=== PATIENT | male | born 1945 | race African-American/Black ===

== ENCOUNTER 2017-10-22 15:54 | Inpatient (IN) | payer MEDICARE ==
[~2017-10-22] VITALS: Ht 172.7 cm; Wt 80.4 kg
[2017-10-22 17:14] VITALS: BP 169/98
[2017-10-22] MEDS ORDERED: MAG HYDROX/AL HYDROX/SIMETH 30 ML ORAL.SUSP PO PRN (18:00)
[2017-10-22] MEDS ORDERED: MAGNESIUM HYDROXIDE 2,400 MG/30 ML ORAL.SUSP. PO PRN (18:00)
[2017-10-22] MEDS ORDERED: ACETAMINOPHEN 325 MG TABLET PO PRN (18:00)
[2017-10-22] MEDS ORDERED: METHYL SALICYLATE/MENTHOL TOPICAL OINTMENT 29GM TUBE. TP PRN (18:00)
--- NOTE | 2017-10-22 18:10 | PDOC ---
Exam Note: [place] Note: Please also refer to the separate dictated note~for this date of service dictated separately.~Patient seen individually. Discussed the patient with Nursing staff reviewed the chart.~Reviewed interim history and current functioning. Reviewed vital signs,~Labs/ Radiology~and current medications noted below. Continue current treatment with the changes noted in the dictated addendum note Assessment: Vital Signs: Vital Signs Date Time Temp Pulse Resp B/P (MAP) Pulse Ox O2 Delivery O2 Flow Rate FiO2 10/22/17 17:14 97.8 72 18 169/98 (121) 99 Current Medications: Meds: Current Medications Acetaminophen (Tylenol) 650 mg PRN Q6HRS PRN PO PAIN / TEMP; Start 10/22/17 at 18:00; Status UNV Multi-Ingredient Ointment (Analgesic [place]) 1 leticia PRN QID PRN TP MUSCLE PAIN; Start 10/22/17 at 18:00; Status UNV Al Hydroxide/Mg Hydroxide (Mylanta Plus Xs) 15 ml PRN AFTMEALHC PRN PO DYSPEPSIA; Start 10/22/17 at 18:00; Status UNV Magnesium Hydroxide (Milk Of Magnesia) 2,400 mg PRN QHS PRN PO CONSTIPATION; Start 10/22/17 at 18:00; Status UNV I have reviewed the current psychotropics carefully including drug interactions. Risk benefit ratio favors no change other than as noted in my dictated progress note. Diagnosis: Problems: (1) Anxiety disorder (2) Dementia in Alzheimer's disease with delusions (3) Dementia in Alzheimer's disease with depression (4) Dementia, vascular, with delusions (5) Dementia, vascular, with depression (6) Impulse control disorder ARMANDO CRAIG MD Oct 22, 2017 18:10
[2017-10-22] MEDS ORDERED: NICO1PAT21 TD (18:18)
[2017-10-22] MEDS ORDERED: LISI-334 PO (18:18)
[2017-10-22] MEDS ORDERED: POLY15DR28 OU (18:18)
[2017-10-22] MEDS ORDERED: AMLO5TAB4 PO (18:18)
[2017-10-22] MEDS ORDERED: DONE5TAB56 PO (18:18)
[2017-10-22] MEDS ORDERED: OLAN2.5T3 PO (18:18)
[2017-10-22] MEDS ORDERED: CYAN100031 PO (18:18)
[2017-10-22] MEDS ORDERED: DOCU-109 PO (18:18)
[2017-10-22] MEDS ORDERED: DOCUSATE SODIUM 100 MG CAPSULE PO PRN (18:30)
[2017-10-22] MEDS ORDERED: OLANZapine 2.5 MG TABLET PO PRN (18:30)
[2017-10-22] MEDS ORDERED: POLYVINYL ALCOHOL 1.4% OPHTH SOLUTION 15ML BOTTLE. OD PRN (18:30)
--- NOTE | 2017-10-22 20:49 | PDOC ---
Exam Note: [place] Note: Please also refer to the separate dictated note~for this date of service dictated separately.~Patient seen individually. Discussed the patient with Nursing staff reviewed the chart.~Reviewed interim history and current functioning. Reviewed vital signs,~Labs/ Radiology~and current medications noted below. Continue current treatment with the changes noted in the dictated addendum note Assessment: Vital Signs: Vital Signs Date Time Temp Pulse Resp B/P (MAP) Pulse Ox O2 Delivery O2 Flow Rate FiO2 10/22/17 17:14 97.8 72 18 169/98 (121) 99 Current Medications: Meds: Current Medications Acetaminophen (Tylenol) 650 mg PRN Q6HRS PRN PO PAIN / TEMP; Start 10/22/17 at 18:00 Multi-Ingredient Ointment (Analgesic [place]) 1 leticia PRN QID PRN TP MUSCLE PAIN; Start 10/22/17 at 18:00 Al Hydroxide/Mg Hydroxide (Mylanta Plus Xs) 15 ml PRN AFTMEALHC PRN PO DYSPEPSIA; Start 10/22/17 at 18:00 Magnesium Hydroxide (Milk Of Magnesia) 2,400 mg PRN QHS PRN PO CONSTIPATION; Start 10/22/17 at 18:00 Amlodipine Besylate (Norvasc) 5 mg DAILY PO ; Start 10/23/17 at 09:00 Docusate Sodium (Colace) 100 mg PRN BID PRN PO CONSTIPATION; Start 10/22/17 at 18:30 Donepezil HCl (Aricept) 5 mg QHS PO Last administered on 10/22/17at 20:20; Start 10/22/17 at 21:00 Lisinopril (Prinivil) 20 mg DAILY PO ; Start 10/23/17 at 09:00 Nicotine (Nicoderm Cq 21mg) 1 patch DAILY TD ; Start 10/23/17 at 09:00 Olanzapine (ZyPREXA) 2.5 mg PRN Q2HR PRN PO ANXIETY / AGITATION; Start at 18:30 Artificial Tears (Artificial Tears) 1 drop PRN BID PRN OD DRY EYE; Start at 18:30 Cyanocobalamin (Vitamin B-12) 1,000 mcg DAILY PO ; Start 10/23/17 at 09:00 Active Scripts Active Reported Zyprexa (Olanzapine) 2.5 Mg Tablet 2.5 Mg PO PRN Q2HR PRN Liquitears (Polyvinyl Alcohol) 15 Ml Drops 1 Drop OD Colace (Docusate Sodium) 100 Mg Capsule 100 Mg PO PRN BID PRN NICODERM CQ 21mg (Nicotine) 1 Each Patch.td24 1 Patch TD DAILY Lisinopril 20 Mg Tablet 20 Mg PO DAILY Aricept (Donepezil Hcl) 5 Mg Tablet 5 Mg PO QHS B-12 (Cyanocobalamin (Vitamin B-12)) 1,000 Mcg Tablet.er 1,000 Mcg PO DAILY Norvasc (Amlodipine Besylate) 5 Mg Tablet 5 Mg PO DAILY I have reviewed the current psychotropics carefully including drug interactions. Risk benefit ratio favors no change other than as noted in my dictated progress note. Diagnosis: Problems: (1) Anxiety disorder (2) Impulse control disorder (3) Dementia, vascular, with depression (4) Dementia, vascular, with delusions (5) Dementia in Alzheimer's disease with depression (6) Dementia in Alzheimer's disease with delusions ARMANDO CRAIG MD Oct 22, 2017 20:49
[2017-10-22] MEDS ORDERED: DONEPEZIL HCL 5 MG TABLET. PO SCH (21:00)
[2017-10-23 06:04] VITALS: BP 151/85
[2017-10-23 07:27] LABS: BASO % 1 % (0-3); EOS # 0.1 x10^3/uL (0.0-0.7); EOS % 2 % (0-3); HEMOGLOBIN 13.7 g/dL (13.0-17.5); LYMPH # 1.6 x10^3/uL (1.0-4.8); LYMPH % 33 % (24-48); MEAN CORPUSCULAR HEMOGLOBIN 29 pg (25-35); MEAN CORPUSCULAR HGB CONC 33 g/dL (31-37); MEAN CORPUSCULAR VOLUME 86 fL (79-100); MONO # 0.5 x10^3/uL (0.0-1.1); MONO % 10 % (0-9); NEUT # 2.8 x10^3uL (1.8-7.7); NEUT % 55 % (31-73); PLATELET COUNT 225 x10^3/uL (140-400); RED BLOOD COUNT 4.76 x10^6/uL (4.30-5.70); RED CELL DISTRIBUTION WIDTH 16.3 % (11.5-14.5)
[2017-10-23 07:42] LABS: ALBUMIN/GLOBULIN RATIO 0.9 (1.0-1.7); CALCIUM 8.8 mg/dL (8.5-10.1); CREATININE 0.9 mg/dL (0.7-1.3); GFR 82.5; MAGNESIUM 1.8 mg/dL (1.8-2.4); POTASSIUM 3.9 mmol/L (3.5-5.1); TOTAL BILIRUBIN 0.5 mg/dL (0.2-1.0); TOTAL PROTEIN 6.5 g/dL (6.4-8.2)
[2017-10-23] MEDS: NICOTINE 21MG PATCH. TD SCH ×2 (08:56→09:00)
[2017-10-23] MEDS: CYANOCOBALAMIN (VITAMIN B-12) 1,000 MCG TABLET. PO SCH (08:56)
[2017-10-23] MEDS: LISINOPRIL 20 MG TABLET PO SCH (08:57)
[2017-10-23] MEDS: amLODIPine BESYLATE 5 MG TABLET PO SCH (08:57)
--- NOTE | 2017-10-23 11:32 | HP ---
ADMIT DATE: 10/22/2017 PSYCHIATRIC ADMISSION HISTORY/EVALUATION This late entry 10/22/2017 covers elements not covered in my initial note 10/22/2017. I met with the patient in the evening of 10/22/2017 for this evaluation previously discussed with nursing staff, reviewed information from [facility] where he has been hospitalized after he was found at home extremely , unsanitary, unlivable conditions, extremely depressed, potential danger to himself. While at [facility], he was increasingly agitated, screaming, yelling, pushing staff, disorganized, cursing, hitting the pierce, inability to do self cares. CHIEF COMPLAINT: "I have been here 3 weeks." The patient was in fact admitted within a hour or two prior to my visit with him. HISTORY OF PRESENT ILLNESS: The patient has a history of dementia, Alzheimer's vascular type. Despite this, he has been living at home and apparently another lady friend lives at home. Urine drug screen at [facility] was positive for cocaine, but family states the patient has no history of substance abuse and his lady friend might have something to do with his positive drug screen. He has been quite delusional, depressed, hopeless, helpless, worthless. No active suicidal or homicidal ideation. No active symptoms of bipolar disorder. PAST PSYCHIATRIC HISTORY: As above. MEDICAL HISTORY: Hypertension. DRUG ALLERGIES: Negative. CURRENT PSYCHOTROPICS: EMRAD was reviewed and my initial note has a list of his psychotropics. FAMILY HISTORY: Noncontributory. SOCIAL HISTORY: The patient had been living in his home in extremely unsanitary, unlivable condition. We will defer to social service staff for further history on this. No alcohol, drug abuse, physical, sexual or elder abuse history is noted, but we will have to reassess not known to be a perpetrator. MENTAL STATUS EXAMINATION: The patient was seen individually evening of 10/22/2017. He is in his wheelchair, oriented to himself, unaware of where he was, how long he had been here. Insight, judgment, recent and remote memory, attention, concentration, fund of knowledge poor, consistent with his diagnosis mentioned in my initial note. REVIEW OF SYSTEMS: No CV, , pulmonary, eye, ENT system symptoms on review. Reliability poor. Ambulation impaired. IMPRESSION: Major neurocognitive disorder, Alzheimer, vascular with depression, delusion, behavioral disturbance; anxiety disorder, unspecified; impulse control disorder, unspecified. Rest unchanged from admission. PLAN: Admit to geropsychiatry unit at [facility]. I will see the patient daily individually from a psychiatric standpoint, medical followup per Dr. Avalos/Dr. Yi. Continue current psychotropics, observe baseline, then adjust as clinically indicated and social service staff will pursue appropriate placement options. MAN Clayton CRAIG MD DR: FARIBA/lucia JOB#: [id number] / [id number]
--- NOTE | 2017-10-23 11:57 | EKG ---
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
[2017-10-23 13:17] LABS: CLARITY,URINE CLEAR; COLOR,URINE YELLOW
[2017-10-23 13:18] LABS: BACTERIA,URINE 0 /HPF (0-FEW); BILIRUBIN,URINE NEG (NEG); GLUCOSE,URINE NEG (NEG); NITRITE,URINE NEG (NEG); RBC,URINE 0 /HPF (0-2); SQUAMOUS EPITHELIAL CELL,UR OCC /LPF; UROBILINOGEN,URINE 1 mg/dL (0.2 mg/dL); WBC,URINE RARE /HPF (0-4)
[2017-10-23 14:03] LABS: THYROID STIM HORMONE (TSH) 0.721 uIU/mL (0.358-3.740)
[2017-10-23 16:14] VITALS: BP 129/93
[2017-10-23] MEDS: DONEPEZIL HCL 10 MG TABLET PO SCH (19:54)
--- NOTE | 2017-10-23 20:54 | PDOC ---
Exam Note: [place] Note: Please also refer to the separate dictated note~for this date of service dictated separately.~Patient seen individually. Discussed the patient with Nursing staff reviewed the chart.~Reviewed interim history and current functioning. Reviewed vital signs,~Labs/ Radiology~and current medications noted below. Continue current treatment with the changes noted in the dictated addendum note Assessment: Vital Signs: Vital Signs Date Time Temp Pulse Resp B/P (MAP) Pulse Ox O2 Delivery O2 Flow Rate FiO2 10/23/17 16:14 97.9 67 19 129/93 (105) 98 I&O Intake and Output 10/23/17 07:00 Intake Total 480 ml Balance 480 ml Intake Oral 480 ml # Voids 2 Labs: Laboratory Tests Test 10/23/17 06:53 10/23/17 11:55 White Blood Count 5.0 x10^3/uL (4.0-11.0) Red Blood Count 4.76 x10^6/uL (4.30-5.70) Hemoglobin 13.7 g/dL (13.0-17.5) Hematocrit 41.0 % (39.0-53.0) Mean Corpuscular Volume 86 fL (79-100) Mean Corpuscular Hemoglobin 29 pg (25-35) Mean Corpuscular Hemoglobin Concent 33 g/dL (31-37) Red Cell Distribution Width 16.3 % (11.5-14.5) H Platelet Count 225 x10^3/uL (140-400) Neutrophils (%) (Auto) 55 % (31-73) Lymphocytes (%) (Auto) 33 % (24-48) Monocytes (%) (Auto) 10 % (0-9) H Eosinophils (%) (Auto) 2 % (0-3) Basophils (%) (Auto) 1 % (0-3) Neutrophils # (Auto) 2.8 x10^3uL (1.8-7.7) Lymphocytes # (Auto) 1.6 x10^3/uL (1.0-4.8) Monocytes # (Auto) 0.5 x10^3/uL (0.0-1.1) Eosinophils # (Auto) 0.1 x10^3/uL (0.0-0.7) Basophils # (Auto) 0.0 x10^3/uL (0.0-0.2) Sodium Level 141 mmol/L (136-145) Potassium Level 3.9 mmol/L (3.5-5.1) Chloride Level 105 mmol/L (98-107) Carbon Dioxide Level 28 mmol/L (21-32) Anion Gap 8 (6-14) Blood Urea Nitrogen 10 mg/dL (8-26) Creatinine 0.9 mg/dL (0.7-1.3) Estimated GFR (Cockcroft-Gault) 82.5 BUN/Creatinine Ratio 11 (6-20) Glucose Level 84 mg/dL (70-99) Calcium Level 8.8 mg/dL (8.5-10.1) Magnesium Level 1.8 mg/dL (1.8-2.4) Iron Level 74 ug/dL (65-175) Total Iron Binding Capacity 253 ug/dL (250-450) Iron Saturation 29 % (15-34) Total Bilirubin 0.5 mg/dL (0.2-1.0) Aspartate Amino Transferase (AST) 28 U/L (15-37) Alanine Aminotransferase (ALT) 26 U/L (16-63) Alkaline Phosphatase 70 U/L (46-116) Total Protein 6.5 g/dL (6.4-8.2) Albumin 3.0 g/dL (3.4-5.0) L Albumin/Globulin Ratio 0.9 (1.0-1.7) L Triglycerides Level 61 mg/dL (0-150) Cholesterol Level 140 mg/dL (0-200) LDL Cholesterol, Calculated 60 mg/dL (0-100) VLDL Cholesterol, Calculated 12 mg/dL (0-40) Non-HDL Cholesterol Calculated 72 mg/dL (0-129) HDL Cholesterol 68 mg/dL (40-60) H Cholesterol/HDL Ratio 2.0 Vitamin B12 Level 452 pg/mL (247-911) 25-Hydroxy Vitamin D Total < 4.2 ng/mL (30-100) L Thyroid Stimulating Hormone (TSH) 0.721 uIU/mL (0.358-3.740) Urine Collection Type Unknown Urine Color Yellow Urine Clarity Clear Urine pH 6.5 Urine Specific [place] 1.015 Urine Protein Neg (NEG-TRACE) Urine Glucose (UA) Neg mg/dL (NEG) Urine Ketones (Stick) Neg mg/dL (NEG) Urine Blood Neg (NEG) Urine Nitrite Neg (NEG) Urine Bilirubin Neg (NEG) Urine Urobilinogen Dipstick 1 mg/dL (0.2 mg/dL) Urine Leukocyte Esterase Neg (NEG) Urine RBC 0 /HPF (0-2) Urine WBC Rare /HPF (0-4) Urine Squamous Epithelial Cells Occ /LPF Urine Bacteria 0 /HPF (0-FEW) Urine Mucus Mod /LPF Current Medications: Meds: Current Medications Acetaminophen (Tylenol) 650 mg PRN Q6HRS PRN PO PAIN / TEMP; Start 10/22/17 at 18:00 Multi-Ingredient Ointment (Analgesic [place]) 1 leticia PRN QID PRN TP MUSCLE PAIN; Start 10/22/17 at 18:00 Al Hydroxide/Mg Hydroxide (Mylanta Plus Xs) 15 ml PRN AFTMEALHC PRN PO DYSPEPSIA; Start 10/22/17 at 18:00 Magnesium Hydroxide (Milk Of Magnesia) 2,400 mg PRN QHS PRN PO CONSTIPATION; Start 10/22/17 at 18:00 Amlodipine Besylate (Norvasc) 5 mg DAILY PO Last administered on 10/23/17at 08: 57; Start 10/23/17 at 09:00 Docusate Sodium (Colace) 100 mg PRN BID PRN PO CONSTIPATION; Start 10/22/17 at 18:30 Donepezil HCl (Aricept) 5 mg QHS PO Last administered on 10/22/17at 20:20; Start 10/22/17 at 21:00; Stop 10/23/17 at 18:04; Status DC Lisinopril (Prinivil) 20 mg DAILY PO Last administered on 10/23/17at 08:57; Start 10/23/17 at 09:00 Nicotine (Nicoderm Cq 21mg) 1 patch DAILY TD ; Start 10/23/17 at 09:00 Olanzapine (ZyPREXA) 2.5 mg PRN Q2HR PRN PO ANXIETY / AGITATION; Start at 18:30 Artificial Tears (Artificial Tears) 1 drop PRN BID PRN OD DRY EYE; Start at 18:30 Cyanocobalamin (Vitamin B-12) 1,000 mcg DAILY PO Last administered on at 08:56; Start 10/23/17 at 09:00 Donepezil HCl (Aricept) 10 mg QHS PO Last administered on 10/23/17at 19:54; Start 10/23/17 at 21:00 Sertraline HCl (Zoloft) 25 mg DAILY PO ; Start 10/24/17 at 09:00 Active Scripts Active Reported Zyprexa (Olanzapine) 2.5 Mg Tablet 2.5 Mg PO PRN Q2HR PRN Liquitears (Polyvinyl Alcohol) 15 Ml Drops 1 Drop OD Colace (Docusate Sodium) 100 Mg Capsule 100 Mg PO PRN BID PRN NICODERM CQ 21mg (Nicotine) 1 Each Patch.td24 1 Patch TD DAILY Lisinopril 20 Mg Tablet 20 Mg PO DAILY Aricept (Donepezil Hcl) 5 Mg Tablet 5 Mg PO QHS B-12 (Cyanocobalamin (Vitamin B-12)) 1,000 Mcg Tablet.er 1,000 Mcg PO DAILY Norvasc (Amlodipine Besylate) 5 Mg Tablet 5 Mg PO DAILY I have reviewed the current psychotropics carefully including drug interactions. Risk benefit ratio favors no change other than as noted in my dictated progress note. Diagnosis: Problems: (1) Anxiety disorder (2) Impulse control disorder (3) Dementia, vascular, with depression (4) Dementia, vascular, with delusions (5) Dementia in Alzheimer's disease with depression (6) Dementia in Alzheimer's disease with delusions ARMANDO CRAIG MD Oct 23, 2017 20:54
[2017-10-24 00:11] LABS: T3 TOTAL 130 ng/dL (71-180); THYROXINE 6.4 ug/dL (4.5-12.0)
--- NOTE | 2017-10-24 00:53 | CONS ---
DATE OF CONSULTATION: 10/23/2017 REASON FOR CONSULTATION: Medical management. HISTORY OF PRESENT ILLNESS: The patient is a 72-year-old male patient who was found at home extremely unsanitary unlivable condition, extremely depressed, potential danger to himself. Apparently while at [facility], he was increasingly agitated, screaming, yelling, pushing staff, disorganized, cursing, hitting, and apparently, he is unable to care for himself and was basically admitted to Geropsychiatric Unit to continue his psychotropics and take care of his medical problems and to consult the social service staff to pursue appropriate placement options. The patient himself basically extremely demented with Alzheimer, vascular type. He apparently has been living at home and another lady friend lives at home. A urine drug screen at [facility] was positive for cocaine, and family states the patient has no history of substance abuse, and his lady friend might have something to do with this positive drug screen. He has been quite delusional, depressed, hopeless, helpless, worthless, however, no active suicidal or homicidal ideation and no active symptoms of bipolar disorder. PAST MEDICAL HISTORY: Significant for hypertension. PAST SURGICAL HISTORY: Unremarkable. ALLERGIES: He has no known drug allergies. MEDICATIONS: He is currently on following medications: Aricept 5 mg at bedtime. He is on a Nicoderm transdermal patch 21 mg topically daily, amlodipine besylate 5 mg daily, lisinopril 20 mg once a day, olanzapine 2.5 mg every 2 hours, polyvinyl alcohol for LiquiTears 1 drop to both eyes, Colace 100 mg twice a day and cyanocobalamin 1000 mcg p.o. daily. REVIEW OF SYSTEMS: Unobtainable. FAMILY HISTORY: Noncontributory. PHYSICAL EXAMINATION: GENERAL: When I saw him this afternoon, he looked well and was clearly in no apparent respiratory distress, pale, but no jaundice, cyanosis, or thyromegaly. No jugular venous distention. No limb edema. VITAL SIGNS: Hid heart rate was 73, blood pressure 151/85, temperature was 96.9, respiratory rate was 16, and oxygen saturation was 98% on room air. HEAD, EYES, EARS, NOSE AND THROAT: Showed normocephalic, atraumatic. NECK: Supple. HEART: Showed normal first and second sounds. No gallop, rub or murmur. CHEST: Clear to auscultation. No crepitation or rhonchi. ABDOMEN: Slightly distended, soft, nontender. No guarding or rigidity. No organomegaly. All hernial orifices intact. Bowel sounds normal. NEUROLOGIC: He was demented; however, all his cranial nerves are intact. EXTREMITIES: He moves extremities without difficulty. He ambulates without assistance or assistive devices. LABORATORY DATA: His lab work this morning showed a white cell count 5000, hemoglobin 14, hematocrit 41, MCV 86 and platelet count 225,000. His serum sodium was 141, potassium 3.9, chloride 105, bicarbonate 28, anion gap of 8, BUN 10, creatinine 0.9, estimated GFR was 82 mL per minute. His glucose was 84, calcium was 8.8, magnesium was 1.8. Total bilirubin, AST, ALT, alkaline phosphatase were normal. Total protein was 6.5, albumin 3. His urinalysis showed the urine was yellow, clear with a pH of 6.5, specific gravity of 1.015. The urine was negative for protein, glucose, ketones, blood, nitrite and leukocyte esterase. There are 0 rbc's, rare wbc's, and 0 bacteria. ASSESSMENT AND PLAN: In summary, this is a 72-year-old male patient who basically was found at home in an extremely unsanitary unlivable condition, is extremely depressed, potential danger to himself. He was quite delusional, depressed, hopeless, helpless, worthless, and apparently, urine drug screen at [facility] was positive for cocaine. 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 [facility]. The patient's vital signs seem to be all stable as were his lab work. His blood pressure seems to be reasonably controlled. I would definitely continue with all his current medication, review all the labs, still pending at the time of this dictation, and make any necessary recommendation. ISAIAH NICOLE MD DR: ENRICO/lucia JOB#: [id number] / [id number]
[2017-10-24] MEDS: amLODIPine BESYLATE 5 MG TABLET PO SCH (08:20)
[2017-10-24] MEDS: CYANOCOBALAMIN (VITAMIN B-12) 1,000 MCG TABLET. PO SCH (08:20)
[2017-10-24] MEDS: NICOTINE 21MG PATCH. TD SCH (08:20)
[2017-10-24] MEDS: LISINOPRIL 20 MG TABLET PO SCH (08:20)
[2017-10-24] MEDS ORDERED: SERTRALINE 25 MG TABLET. PO SCH (09:00)
[2017-10-24 15:46] VITALS: BP 100/60
[2017-10-24] MEDS: DONEPEZIL HCL 10 MG TABLET PO SCH (20:11)
--- NOTE | 2017-10-24 22:46 | PDOC ---
Exam Note: [place] Note: Please also refer to the separate dictated note~for this date of service dictated separately.~Patient seen individually. Discussed the patient with Nursing staff reviewed the chart.~Reviewed interim history and current functioning. Reviewed vital signs,~Labs/ Radiology~and current medications noted below. Continue current treatment with the changes noted in the dictated addendum note Assessment: Vital Signs: Vital Signs Date Time Temp Pulse Resp B/P (MAP) Pulse Ox O2 Delivery O2 Flow Rate FiO2 10/24/17 15:46 98.4 64 16 100/60 (73) 98 I&O Intake and Output 10/24/17 07:00 Intake Total 1320 ml Balance 1320 ml Intake Oral 1320 ml # Voids 3 Current Medications: Meds: Current Medications Acetaminophen (Tylenol) 650 mg PRN Q6HRS PRN PO PAIN / TEMP; Start 10/22/17 at 18:00 Multi-Ingredient Ointment (Analgesic [place]) 1 leticia PRN QID PRN TP MUSCLE PAIN; Start 10/22/17 at 18:00 Al Hydroxide/Mg Hydroxide (Mylanta Plus Xs) 15 ml PRN AFTMEALHC PRN PO DYSPEPSIA; Start 10/22/17 at 18:00 Magnesium Hydroxide (Milk Of Magnesia) 2,400 mg PRN QHS PRN PO CONSTIPATION; Start 10/22/17 at 18:00 Amlodipine Besylate (Norvasc) 5 mg DAILY PO Last administered on 10/24/17at 08: 20; Start 10/23/17 at 09:00 Docusate Sodium (Colace) 100 mg PRN BID PRN PO CONSTIPATION; Start 10/22/17 at 18:30 Donepezil HCl (Aricept) 5 mg QHS PO Last administered on 10/22/17at 20:20; Start 10/22/17 at 21:00; Stop 10/23/17 at 18:04; Status DC Lisinopril (Prinivil) 20 mg DAILY PO Last administered on 10/24/17at 08:20; Start 10/23/17 at 09:00 Nicotine (Nicoderm Cq 21mg) 1 patch DAILY TD Last administered on 10/24/17at 08: 20; Start 10/23/17 at 09:00 Olanzapine (ZyPREXA) 2.5 mg PRN Q2HR PRN PO ANXIETY / AGITATION Last administered on 10/23/17at 22:55; Start 10/22/17 at 18:30 Artificial Tears (Artificial Tears) 1 drop PRN BID PRN OD DRY EYE; Start at 18:30 Cyanocobalamin (Vitamin B-12) 1,000 mcg DAILY PO Last administered on at 08:20; Start 10/23/17 at 09:00 Donepezil HCl (Aricept) 10 mg QHS PO Last administered on 10/24/17at 20:11; Start 10/23/17 at 21:00 Sertraline HCl (Zoloft) 25 mg DAILY PO Last administered on 10/24/17at 08:22; Start 10/24/17 at 09:00; Stop 10/24/17 at 18:28; Status DC Sertraline HCl (Zoloft) 50 mg DAILY PO ; Start 10/25/17 at 09:00 Active Scripts Active Reported Zyprexa (Olanzapine) 2.5 Mg Tablet 2.5 Mg PO PRN Q2HR PRN Liquitears (Polyvinyl Alcohol) 15 Ml Drops 1 Drop OD Colace (Docusate Sodium) 100 Mg Capsule 100 Mg PO PRN BID PRN NICODERM CQ 21mg (Nicotine) 1 Each Patch.td24 1 Patch TD DAILY Lisinopril 20 Mg Tablet 20 Mg PO DAILY Aricept (Donepezil Hcl) 5 Mg Tablet 5 Mg PO QHS B-12 (Cyanocobalamin (Vitamin B-12)) 1,000 Mcg Tablet.er 1,000 Mcg PO DAILY Norvasc (Amlodipine Besylate) 5 Mg Tablet 5 Mg PO DAILY I have reviewed the current psychotropics carefully including drug interactions. Risk benefit ratio favors no change other than as noted in my dictated progress note. Diagnosis: Problems: (1) Anxiety disorder (2) Impulse control disorder (3) Dementia, vascular, with depression (4) Dementia, vascular, with delusions (5) Dementia in Alzheimer's disease with depression (6) Dementia in Alzheimer's disease with delusions ARMANDO CRAIG MD Oct 24, 2017 22:46
[2017-10-25 01:09] LABS: HEMOGLOBIN A1C 5.5 % (4.8-5.6)
[2017-10-25 05:55] VITALS: BP 113/67
[2017-10-25] MEDS: NICOTINE 21MG PATCH. TD SCH (07:54)
[2017-10-25] MEDS: LISINOPRIL 20 MG TABLET PO SCH (07:54)
[2017-10-25] MEDS: amLODIPine BESYLATE 5 MG TABLET PO SCH (07:54)
[2017-10-25] MEDS: CYANOCOBALAMIN (VITAMIN B-12) 1,000 MCG TABLET. PO SCH (07:54)
[2017-10-25] MEDS: SERTRALINE 25 MG TABLET. PO SCH (07:56)
[2017-10-25 15:23] VITALS: BP 147/87
--- NOTE | 2017-10-25 16:27 | PN ---
DATE: 10/23/2017 PSYCHIATRIC PROGRESS NOTE This is a late entry, date of service 10/23/2017, covers elements not covered in my initial note 10/23/2017. SUBJECTIVE: I met with the patient the evening of 10/23/2017. The patient had a shaved and showered, looks much building cleaner, had a good day, confused, still depressed, anxious. REVIEW OF SYSTEMS: No CV, , pulmonary, eye, ENT system symptoms on review. Reliability poor. MENTAL STATUS EXAM: Oriented to himself. Insight, judgment, recent and remote memory, attention, concentration, fund of knowledge poor, consistent with his diagnoses mentioned in my initial note. IMPRESSION: Major neurocognitive disorder, Alzheimer, vascular with delusion, depression, behavioral disturbance. PLAN: Increase Aricept to 10 mg a day, start Zoloft 25 mg a day. Rest unchanged for now. MAN Clayton CRAIG MD DR: FARIBA/lucia JOB#: [id number] / [id number]
[2017-10-25] MEDS: DONEPEZIL HCL 10 MG TABLET PO SCH (20:37)
--- NOTE | 2017-10-25 21:56 | PDOC ---
Exam Note: [place] Note: Please also refer to the separate dictated note~for this date of service dictated separately.~Patient seen individually. Discussed the patient with Nursing staff reviewed the chart.~Reviewed interim history and current functioning. Reviewed vital signs,~Labs/ Radiology~and current medications noted below. Continue current treatment with the changes noted in the dictated addendum note Assessment: Vital Signs: Vital Signs Date Time Temp Pulse Resp B/P (MAP) Pulse Ox O2 Delivery O2 Flow Rate FiO2 10/25/17 15:23 97.5 62 18 147/87 (107) 98 I&O Intake and Output 10/25/17 07:00 Intake Total 1440 ml Balance 1440 ml Intake Oral 1440 ml # Voids 2 # Bowel Movements 1 Current Medications: Meds: Current Medications Acetaminophen (Tylenol) 650 mg PRN Q6HRS PRN PO PAIN / TEMP; Start 10/22/17 at 18:00 Multi-Ingredient Ointment (Analgesic [place]) 1 leticia PRN QID PRN TP MUSCLE PAIN; Start 10/22/17 at 18:00 Al Hydroxide/Mg Hydroxide (Mylanta Plus Xs) 15 ml PRN AFTMEALHC PRN PO DYSPEPSIA; Start 10/22/17 at 18:00 Magnesium Hydroxide (Milk Of Magnesia) 2,400 mg PRN QHS PRN PO CONSTIPATION; Start 10/22/17 at 18:00 Amlodipine Besylate (Norvasc) 5 mg DAILY PO Last administered on 10/25/17at 07:54 ; Start 10/23/17 at 09:00 Docusate Sodium (Colace) 100 mg PRN BID PRN PO CONSTIPATION; Start 10/22/17 at 18:30 Donepezil HCl (Aricept) 5 mg QHS PO Last administered on 10/22/17at 20:20; Start 10/22/17 at 21:00; Stop 10/23/17 at 18:04; Status DC Lisinopril (Prinivil) 20 mg DAILY PO Last administered on 10/25/17at 07:54; Start 10/23/17 at 09:00 Nicotine (Nicoderm Cq 21mg) 1 patch DAILY TD Last administered on 10/25/17at 07: 54; Start 10/23/17 at 09:00 Olanzapine (ZyPREXA) 2.5 mg PRN Q2HR PRN PO ANXIETY / AGITATION Last administered on 10/23/17at 22:55; Start 10/22/17 at 18:30 Artificial Tears (Artificial Tears) 1 drop PRN BID PRN OD DRY EYE; Start at 18:30 Cyanocobalamin (Vitamin B-12) 1,000 mcg DAILY PO Last administered on 10/25/17at 07:54; Start 10/23/17 at 09:00 Donepezil HCl (Aricept) 10 mg QHS PO Last administered on 10/25/17at 20:37; Start 10/23/17 at 21:00 Sertraline HCl (Zoloft) 25 mg DAILY PO Last administered on 10/24/17at 08:22; Start 10/24/17 at 09:00; Stop 10/24/17 at 18:28; Status DC Sertraline HCl (Zoloft) 50 mg DAILY PO Last administered on 10/25/17at 07:56; Start 10/25/17 at 09:00 Active Scripts Active Reported Zyprexa (Olanzapine) 2.5 Mg Tablet 2.5 Mg PO PRN Q2HR PRN Liquitears (Polyvinyl Alcohol) 15 Ml Drops 1 Drop OD Colace (Docusate Sodium) 100 Mg Capsule 100 Mg PO PRN BID PRN NICODERM CQ 21mg (Nicotine) 1 Each Patch.td24 1 Patch TD DAILY Lisinopril 20 Mg Tablet 20 Mg PO DAILY Aricept (Donepezil Hcl) 5 Mg Tablet 5 Mg PO QHS B-12 (Cyanocobalamin (Vitamin B-12)) 1,000 Mcg Tablet.er 1,000 Mcg PO DAILY Norvasc (Amlodipine Besylate) 5 Mg Tablet 5 Mg PO DAILY I have reviewed the current psychotropics carefully including drug interactions. Risk benefit ratio favors no change other than as noted in my dictated progress note. Diagnosis: Problems: (1) Anxiety disorder (2) Impulse control disorder (3) Dementia, vascular, with depression (4) Dementia, vascular, with delusions (5) Dementia in Alzheimer's disease with depression (6) Dementia in Alzheimer's disease with delusions ARMANDO CRAIG MD Oct 25, 2017 21:56
[2017-10-26 06:15] VITALS: BP 142/81
[2017-10-26] MEDS: NICOTINE 21MG PATCH. TD SCH ×2 (09:00→09:28)
[2017-10-26] MEDS: SERTRALINE 25 MG TABLET. PO SCH (09:28)
[2017-10-26] MEDS: CYANOCOBALAMIN (VITAMIN B-12) 1,000 MCG TABLET. PO SCH (09:28)
[2017-10-26] MEDS: LISINOPRIL 20 MG TABLET PO SCH (09:29)
[2017-10-26] MEDS: amLODIPine BESYLATE 5 MG TABLET PO SCH (09:29)
[2017-10-26 15:50] VITALS: BP 126/74
[2017-10-26] MEDS: CHOLECALCIFEROL (VITAMIN D3) 50,000 UNIT CAPSULE PO SCH (18:03)
[2017-10-26] MEDS: DONEPEZIL HCL 10 MG TABLET PO SCH (19:15)
--- NOTE | 2017-10-26 20:56 | PDOC ---
Exam Note: [place] Note: Please also refer to the separate dictated note~for this date of service dictated separately.~Patient seen individually. Discussed the patient with Nursing staff reviewed the chart.~Reviewed interim history and current functioning. Reviewed vital signs,~Labs/ Radiology~and current medications noted below. Continue current treatment with the changes noted in the dictated addendum note Assessment: Vital Signs: Vital Signs Date Time Temp Pulse Resp B/P (MAP) Pulse Ox O2 Delivery O2 Flow Rate FiO2 10/26/17 15:50 97.1 74 18 126/74 (91) 96 Room Air I&O Intake and Output 10/26/17 07:00 Intake Total 1180 ml Balance 1180 ml Intake Oral 1180 ml # Voids 1 Current Medications: Meds: Current Medications Acetaminophen (Tylenol) 650 mg PRN Q6HRS PRN PO PAIN / TEMP; Start 10/22/17 at 18:00 Multi-Ingredient Ointment (Analgesic [place]) 1 leticia PRN QID PRN TP MUSCLE PAIN; Start 10/22/17 at 18:00 Al Hydroxide/Mg Hydroxide (Mylanta Plus Xs) 15 ml PRN AFTMEALHC PRN PO DYSPEPSIA; Start 10/22/17 at 18:00 Magnesium Hydroxide (Milk Of Magnesia) 2,400 mg PRN QHS PRN PO CONSTIPATION; Start 10/22/17 at 18:00 Amlodipine Besylate (Norvasc) 5 mg DAILY PO Last administered on 10/26/17at 09:29 ; Start 10/23/17 at 09:00 Docusate Sodium (Colace) 100 mg PRN BID PRN PO CONSTIPATION; Start 10/22/17 at 18:30 Donepezil HCl (Aricept) 5 mg QHS PO Last administered on 10/22/17at 20:20; Start 10/22/17 at 21:00; Stop 10/23/17 at 18:04; Status DC Lisinopril (Prinivil) 20 mg DAILY PO Last administered on 10/26/17at 09:29; Start 10/23/17 at 09:00 Nicotine (Nicoderm Cq 21mg) 1 patch DAILY TD Last administered on 10/25/17at 07: 54; Start 10/23/17 at 09:00 Olanzapine (ZyPREXA) 2.5 mg PRN Q2HR PRN PO ANXIETY / AGITATION Last administered on 10/23/17at 22:55; Start 10/22/17 at 18:30 Artificial Tears (Artificial Tears) 1 drop PRN BID PRN OD DRY EYE; Start at 18:30 Cyanocobalamin (Vitamin B-12) 1,000 mcg DAILY PO Last administered on 10/26/17at 09:28; Start 10/23/17 at 09:00 Donepezil HCl (Aricept) 10 mg QHS PO Last administered on 10/26/17at 19:15; Start 10/23/17 at 21:00 Sertraline HCl (Zoloft) 25 mg DAILY PO Last administered on 10/24/17at 08:22; Start 10/24/17 at 09:00; Stop 10/24/17 at 18:28; Status DC Sertraline HCl (Zoloft) 50 mg DAILY PO Last administered on 10/26/17at 09:28; Start 10/25/17 at 09:00; Stop 10/26/17 at 16:27; Status DC Sertraline HCl (Zoloft) 50 mg DAILY PO ; Start 10/27/17 at 09:00 Vitamin D (Vitamin D3) 50,000 unit WEEKLY PO Last administered on 10/26/17at 18: 03; Start 10/26/17 at 18:00 Active Scripts Active Reported Zyprexa (Olanzapine) 2.5 Mg Tablet 2.5 Mg PO PRN Q2HR PRN Liquitears (Polyvinyl Alcohol) 15 Ml Drops 1 Drop OD Colace (Docusate Sodium) 100 Mg Capsule 100 Mg PO PRN BID PRN NICODERM CQ 21mg (Nicotine) 1 Each Patch.td24 1 Patch TD DAILY Lisinopril 20 Mg Tablet 20 Mg PO DAILY Aricept (Donepezil Hcl) 5 Mg Tablet 5 Mg PO QHS B-12 (Cyanocobalamin (Vitamin B-12)) 1,000 Mcg Tablet.er 1,000 Mcg PO DAILY Norvasc (Amlodipine Besylate) 5 Mg Tablet 5 Mg PO DAILY I have reviewed the current psychotropics carefully including drug interactions. Risk benefit ratio favors no change other than as noted in my dictated progress note. Diagnosis: Problems: (1) Anxiety disorder (2) Impulse control disorder (3) Dementia, vascular, with depression (4) Dementia, vascular, with delusions (5) Dementia in Alzheimer's disease with depression (6) Dementia in Alzheimer's disease with delusions ARMANDO CRAIG MD Oct 26, 2017 20:56
--- NOTE | 2017-10-27 01:18 | PN ---
DATE: 10/24/2017 PSYCHIATRIC PROGRESS NOTE This is a late entry 10/24/2017, covers elements not covered in my initial note of 10/24/2017. SUBJECTIVE: The patient slept 8 hours previous evening; more cooperative; certainly confused; less psychotic and does better with female staff; refused a.m. vitals and meds, took them later; rambling in his speech; anxious; somewhat dysphoric. REVIEW OF SYSTEMS: No CV, , pulmonary, eye, ENT system symptoms on review. Reliability poor. MENTAL STATUS EXAM: Oriented to himself. Insight, judgment, recent and remote memory, attention, concentration, fund of knowledge poor, consistent with his diagnosis mentioned in my initial note. IMPRESSION: Major neurocognitive disorder, Alzheimer, vascular with depression, delusion, behavioral disturbance; anxiety disorder, unspecified. Rest unchanged. PLAN: Increase Zoloft to 50 mg a day. Continue Aricept 10 mg a day, Zyprexa p.r.n. for now. ARMANDO CRAIG MD DR: FARIBA/lucia JOB#: [id number] / [id number]
--- NOTE | 2017-10-27 03:08 | PN ---
DATE: 10/25/2017 PSYCHIATRIC PROGRESS NOTE This is a late entry for 10/25/2016, covers elements not covered in my initial note of 10/25/2016. SUBJECTIVE: I met with the patient the evening of 10/25/2017. Overall, the patient remains disorganized, but calm, pleasant. At times, he was yelling, wanting help with his clothes, but redirected. He had a bowel movement on the bathroom floor, quite oblivious of this, nursing staff intervened. REVIEW OF SYSTEMS: No CV, , pulmonary, eye, ENT system symptoms on review. Reliability poor. I met with him in his room. MENTAL STATUS EXAM: Oriented to himself. Insight, judgment, recent and remote memory, attention, concentration, fund of knowledge poor, consistent with his diagnosis mentioned in my initial note. PLAN: Continue psychotropics mentioned in my initial note. Adjust further as clinically indicated. Zoloft was increased. ARMANDO CRAIG MD DR: FARIBA/lucia JOB#: [id number] / [id number]
[2017-10-27 05:59] VITALS: BP 144/91
[2017-10-27] MEDS: NICOTINE 21MG PATCH. TD SCH ×2 (09:00→09:04)
[2017-10-27] MEDS: amLODIPine BESYLATE 5 MG TABLET PO SCH (09:04)
[2017-10-27] MEDS: CYANOCOBALAMIN (VITAMIN B-12) 1,000 MCG TABLET. PO SCH (09:04)
[2017-10-27] MEDS: LISINOPRIL 20 MG TABLET PO SCH (09:04)
[2017-10-27] MEDS: SERTRALINE 50 MG TABLET. PO SCH (09:06)
[2017-10-27 15:35] VITALS: BP 110/62
[2017-10-27] MEDS: DONEPEZIL HCL 10 MG TABLET PO SCH (19:17)
--- NOTE | 2017-10-27 20:54 | PDOC ---
Exam Note: [place] Note: Please also refer to the separate dictated note~for this date of service dictated separately.~Patient seen individually. Discussed the patient with Nursing staff reviewed the chart.~Reviewed interim history and current functioning. Reviewed vital signs,~Labs/ Radiology~and current medications noted below. Continue current treatment with the changes noted in the dictated addendum note Assessment: Vital Signs: Vital Signs Date Time Temp Pulse Resp B/P (MAP) Pulse Ox O2 Delivery O2 Flow Rate FiO2 10/27/17 15:35 96.8 55 15 110/62 (78) 99 10/26/17 15:50 Room Air I&O Intake and Output 10/27/17 07:00 Intake Total 1300 ml Balance 1300 ml Intake Oral 1300 ml # Voids 2 # Bowel Movements 1 Current Medications: Meds: Current Medications Acetaminophen (Tylenol) 650 mg PRN Q6HRS PRN PO PAIN / TEMP; Start 10/22/17 at 18:00 Multi-Ingredient Ointment (Analgesic [place]) 1 leticia PRN QID PRN TP MUSCLE PAIN; Start 10/22/17 at 18:00 Al Hydroxide/Mg Hydroxide (Mylanta Plus Xs) 15 ml PRN AFTMEALHC PRN PO DYSPEPSIA; Start 10/22/17 at 18:00 Magnesium Hydroxide (Milk Of Magnesia) 2,400 mg PRN QHS PRN PO CONSTIPATION; Start 10/22/17 at 18:00 Amlodipine Besylate (Norvasc) 5 mg DAILY PO Last administered on 10/27/17at 09:04 ; Start 10/23/17 at 09:00 Docusate Sodium (Colace) 100 mg PRN BID PRN PO CONSTIPATION; Start 10/22/17 at 18:30 Donepezil HCl (Aricept) 5 mg QHS PO Last administered on 10/22/17at 20:20; Start 10/22/17 at 21:00; Stop 10/23/17 at 18:04; Status DC Lisinopril (Prinivil) 20 mg DAILY PO Last administered on 10/27/17at 09:04; Start 10/23/17 at 09:00 Nicotine (Nicoderm Cq 21mg) 1 patch DAILY TD Last administered on 10/25/17at 07: 54; Start 10/23/17 at 09:00 Olanzapine (ZyPREXA) 2.5 mg PRN Q2HR PRN PO ANXIETY / AGITATION Last administered on 10/23/17at 22:55; Start 10/22/17 at 18:30 Artificial Tears (Artificial Tears) 1 drop PRN BID PRN OD DRY EYE; Start at 18:30 Cyanocobalamin (Vitamin B-12) 1,000 mcg DAILY PO Last administered on 10/27/17 09:04; Start 10/23/17 at 09:00 Donepezil HCl (Aricept) 10 mg QHS PO Last administered on 10/27/17at 19:17; Start 10/23/17 at 21:00 Sertraline HCl (Zoloft) 25 mg DAILY PO Last administered on 10/24/17at 08:22; Start 10/24/17 at 09:00; Stop 10/24/17 at 18:28; Status DC Sertraline HCl (Zoloft) 50 mg DAILY PO Last administered on 10/26/17at 09:28; Start 10/25/17 at 09:00; Stop 10/26/17 at 16:27; Status DC Sertraline HCl (Zoloft) 50 mg DAILY PO Last administered on 10/27/17at 09:06; Start 10/27/17 at 09:00 Vitamin D (Vitamin D3) 50,000 unit WEEKLY PO Last administered on 10/26/17at 18: 03; Start 10/26/17 at 18:00 Active Scripts Active Reported Zyprexa (Olanzapine) 2.5 Mg Tablet 2.5 Mg PO PRN Q2HR PRN Liquitears (Polyvinyl Alcohol) 15 Ml Drops 1 Drop OD Colace (Docusate Sodium) 100 Mg Capsule 100 Mg PO PRN BID PRN NICODERM CQ 21mg (Nicotine) 1 Each Patch.td24 1 Patch TD DAILY Lisinopril 20 Mg Tablet 20 Mg PO DAILY Aricept (Donepezil Hcl) 5 Mg Tablet 5 Mg PO QHS B-12 (Cyanocobalamin (Vitamin B-12)) 1,000 Mcg Tablet.er 1,000 Mcg PO DAILY Norvasc (Amlodipine Besylate) 5 Mg Tablet 5 Mg PO DAILY I have reviewed the current psychotropics carefully including drug interactions. Risk benefit ratio favors no change other than as noted in my dictated progress note. Diagnosis: Problems: (1) Anxiety disorder (2) Impulse control disorder (3) Dementia, vascular, with depression (4) Dementia, vascular, with delusions (5) Dementia in Alzheimer's disease with depression (6) Dementia in Alzheimer's disease with delusions ARMANDO CRAIG MD Oct 27, 2017 20:54
--- NOTE | 2017-10-27 21:25 | PN ---
DATE: 10/26/2017 This late entry, 10/26/2017, covers elements not covered in my initial note of 10/26/2017. SUBJECTIVE: I met with the patient the evening of 10/26/2017. The patient remains confused, forgetful, compliant with medications, pleasant, smiling, somewhat withdrawn. His son visited him. He is oriented just to himself. Vitamin D was started as the supplement level was low. REVIEW OF SYSTEMS: No CV, , pulmonary, eye, ENT system symptoms on review. Reliability poor. MENTAL STATUS EXAM: Oriented to himself. Insight, judgment, recent and remote memory, attention, concentration, fund of knowledge poor consistent with his diagnosis mentioned in my initial note. IMPRESSION: Major neurocognitive disorder, Alzheimer, vascular with depression, delusion, behavioral disturbance. Rest unchanged. PLAN: Continue psychotropics mentioned in my initial notes. MAN Clayton CRAIG MD DR: FARIBA/lucia JOB#: [id number] / [id number]
[2017-10-28 05:55] VITALS: BP 152/97
[2017-10-28] MEDS: amLODIPine BESYLATE 5 MG TABLET PO SCH (08:54)
[2017-10-28] MEDS: CYANOCOBALAMIN (VITAMIN B-12) 1,000 MCG TABLET. PO SCH (08:54)
[2017-10-28] MEDS: NICOTINE 21MG PATCH. TD SCH (08:54)
[2017-10-28] MEDS: LISINOPRIL 20 MG TABLET PO SCH (08:55)
[2017-10-28] MEDS: SERTRALINE 50 MG TABLET. PO SCH (08:55)
[2017-10-28 16:03] VITALS: BP 92/75
[2017-10-28] MEDS: traZODone 50 MG TABLET. PO SCH (19:42)
[2017-10-28] MEDS: DONEPEZIL HCL 10 MG TABLET PO SCH (19:42)
--- NOTE | 2017-10-28 20:20 | PN ---
DATE: 10/27/2017 PSYCHIATRIC PROGRESS NOTE This late entry of 10/27/2017, covers elements not covered in my initial note of 10/27/2017. I met with the patient in the evening of 10/27/2017. He did well the previous night, somewhat withdrawn during the day on 10/27/2017. Less labile, still depressed. REVIEW OF SYSTEMS: No CV, , pulmonary, eye, ENT system symptoms on review. Reliability is poor. MENTAL STATUS EXAM: Oriented to himself. Insight, judgment, recent and remote memory, attention, concentration, fund of knowledge poor, consistent with his diagnosis mentioned in my initial note. IMPRESSION: Major neurocognitive disorder, Alzheimer, vascular with depression, delusion, behavioral disturbance. Rest unchanged. PLAN: Continue psychotropics mentioned in my initial note, may need to increase Zoloft further, but we will give it another day or two before deciding. MAN Clayton CRAIG MD DR: FARIBA/lucia JOB#: [id number] / [id number]
--- NOTE | 2017-10-28 20:53 | PDOC ---
Exam Note: [place] Note: Please also refer to the separate dictated note~for this date of service dictated separately.~Patient seen individually. Discussed the patient with Nursing staff reviewed the chart.~Reviewed interim history and current functioning. Reviewed vital signs,~Labs/ Radiology~and current medications noted below. Continue current treatment with the changes noted in the dictated addendum note Assessment: Vital Signs: Vital Signs Date Time Temp Pulse Resp B/P (MAP) Pulse Ox O2 Delivery O2 Flow Rate FiO2 10/28/17 16:03 97.5 66 18 92/75 (81) 95 Room Air I&O Intake and Output 10/28/17 07:00 Intake Total 1320 ml Balance 1320 ml Intake Oral 1320 ml # Voids 1 Current Medications: Meds: Current Medications Acetaminophen (Tylenol) 650 mg PRN Q6HRS PRN PO PAIN / TEMP; Start 10/22/17 at 18:00 Multi-Ingredient Ointment (Analgesic [place]) 1 leticia PRN QID PRN TP MUSCLE PAIN; Start 10/22/17 at 18:00 Al Hydroxide/Mg Hydroxide (Mylanta Plus Xs) 15 ml PRN AFTMEALHC PRN PO DYSPEPSIA; Start 10/22/17 at 18:00 Magnesium Hydroxide (Milk Of Magnesia) 2,400 mg PRN QHS PRN PO CONSTIPATION; Start 10/22/17 at 18:00 Amlodipine Besylate (Norvasc) 5 mg DAILY PO Last administered on 10/28/17 08:54 ; Start 10/23/17 at 09:00 Docusate Sodium (Colace) 100 mg PRN BID PRN PO CONSTIPATION; Start 10/22/17 at 18:30 Donepezil HCl (Aricept) 5 mg QHS PO Last administered on 10/22/17at 20:20; Start 10/22/17 at 21:00; Stop 10/23/17 at 18:04; Status DC Lisinopril (Prinivil) 20 mg DAILY PO Last administered on 10/28/17 08:55; Start 10/23/17 at 09:00 Nicotine (Nicoderm Cq 21mg) 1 patch DAILY TD Last administered on 10/28/17 08: 54; Start 10/23/17 at 09:00 Olanzapine (ZyPREXA) 2.5 mg PRN Q2HR PRN PO ANXIETY / AGITATION Last administered on 10/23/17 22:55; Start 10/22/17 at 18:30 Artificial Tears (Artificial Tears) 1 drop PRN BID PRN OD DRY EYE; Start at 18:30 Cyanocobalamin (Vitamin B-12) 1,000 mcg DAILY PO Last administered on 10/28/17 08:54; Start 10/23/17 at 09:00 Donepezil HCl (Aricept) 10 mg QHS PO Last administered on 10/28/17 19:42; Start 10/23/17 at 21:00 Sertraline HCl (Zoloft) 25 mg DAILY PO Last administered on 10/24/17 08:22; Start 10/24/17 at 09:00; Stop 10/24/17 at 18:28; Status DC Sertraline HCl (Zoloft) 50 mg DAILY PO Last administered on 10/26/17 09:28; Start 10/25/17 at 09:00; Stop 10/26/17 at 16:27; Status DC Sertraline HCl (Zoloft) 50 mg DAILY PO Last administered on 10/28/17 08:55; Start 10/27/17 at 09:00 Vitamin D (Vitamin D3) 50,000 unit WEEKLY PO Last administered on 10/26/17 18: 03; Start 10/26/17 at 18:00 Trazodone HCl (Desyrel) 50 mg QHS PO Last administered on 10/28/17 19:42; Start 10/28/17 at 21:00 Active Scripts Active Reported Zyprexa (Olanzapine) 2.5 Mg Tablet 2.5 Mg PO PRN Q2HR PRN Liquitears (Polyvinyl Alcohol) 15 Ml Drops 1 Drop OD Colace (Docusate Sodium) 100 Mg Capsule 100 Mg PO PRN BID PRN NICODERM CQ 21mg (Nicotine) 1 Each Patch.td24 1 Patch TD DAILY Lisinopril 20 Mg Tablet 20 Mg PO DAILY Aricept (Donepezil Hcl) 5 Mg Tablet 5 Mg PO QHS B-12 (Cyanocobalamin (Vitamin B-12)) 1,000 Mcg Tablet.er 1,000 Mcg PO DAILY Norvasc (Amlodipine Besylate) 5 Mg Tablet 5 Mg PO DAILY I have reviewed the current psychotropics carefully including drug interactions. Risk benefit ratio favors no change other than as noted in my dictated progress note. Diagnosis: Problems: (1) Anxiety disorder (2) Impulse control disorder (3) Dementia, vascular, with depression (4) Dementia, vascular, with delusions (5) Dementia in Alzheimer's disease with depression (6) Dementia in Alzheimer's disease with delusions ARMANDO CRAIG MD Oct 28, 2017 20:53
[2017-10-29 05:47] VITALS: BP 132/90
[2017-10-29 07:00] LABS: ALBUMIN 3.1 g/dL (3.4-5.0); ALBUMIN/GLOBULIN RATIO 0.9 (1.0-1.7); CALCIUM 9.2 mg/dL (8.5-10.1); CREATININE 0.9 mg/dL (0.7-1.3); GFR 82.5; POTASSIUM 4.4 mmol/L (3.5-5.1); TOTAL BILIRUBIN 0.3 mg/dL (0.2-1.0); TOTAL PROTEIN 6.7 g/dL (6.4-8.2)
[2017-10-29 07:03] LABS: BASO % 1 % (0-3); EOS # 0.2 x10^3/uL (0.0-0.7); EOS % 3 % (0-3); HEMATOCRIT 42.8 % (39.0-53.0); HEMOGLOBIN 14.2 g/dL (13.0-17.5); LYMPH # 1.6 x10^3/uL (1.0-4.8); LYMPH % 31 % (24-48); MEAN CORPUSCULAR HEMOGLOBIN 29 pg (25-35); MEAN CORPUSCULAR HGB CONC 33 g/dL (31-37); MEAN CORPUSCULAR VOLUME 86 fL (79-100); MONO # 0.5 x10^3/uL (0.0-1.1); MONO % 10 % (0-9); NEUT # 2.8 x10^3uL (1.8-7.7); NEUT % 55 % (31-73); PLATELET COUNT 238 x10^3/uL (140-400); RED BLOOD COUNT 4.95 x10^6/uL (4.30-5.70); RED CELL DISTRIBUTION WIDTH 16.1 % (11.5-14.5); WHITE BLOOD COUNT 5.1 x10^3/uL (4.0-11.0)
[2017-10-29] MEDS: NICOTINE 21MG PATCH. TD SCH (09:20)
[2017-10-29] MEDS: amLODIPine BESYLATE 5 MG TABLET PO SCH (09:21)
[2017-10-29] MEDS: SERTRALINE 50 MG TABLET. PO SCH (09:21)
[2017-10-29] MEDS: CYANOCOBALAMIN (VITAMIN B-12) 1,000 MCG TABLET. PO SCH (09:21)
[2017-10-29] MEDS: LISINOPRIL 20 MG TABLET PO SCH (09:21)
[2017-10-29 16:22] VITALS: BP 99/59
[2017-10-29] MEDS: DONEPEZIL HCL 10 MG TABLET PO SCH (19:43)
[2017-10-29] MEDS: traZODone 50 MG TABLET. PO SCH (19:44)
--- NOTE | 2017-10-29 20:52 | PDOC ---
Exam Note: [place] Note: Please also refer to the separate dictated note~for this date of service dictated separately.~Patient seen individually. Discussed the patient with Nursing staff reviewed the chart.~Reviewed interim history and current functioning. Reviewed vital signs,~Labs/ Radiology~and current medications noted below. Continue current treatment with the changes noted in the dictated addendum note Assessment: Vital Signs: Vital Signs Date Time Temp Pulse Resp B/P (MAP) Pulse Ox O2 Delivery O2 Flow Rate FiO2 10/29/17 16:22 96.3 52 14 99/59 (72) 100 10/28/17 16:03 Room Air I&O Intake and Output 10/29/17 07:00 Intake Total 1440 ml Balance 1440 ml Intake Oral 1440 ml # Voids 1 Labs: Laboratory Tests Test 10/29/17 06:39 White Blood Count 5.1 x10^3/uL (4.0-11.0) Red Blood Count 4.95 x10^6/uL (4.30-5.70) Hemoglobin 14.2 g/dL (13.0-17.5) Hematocrit 42.8 % (39.0-53.0) Mean Corpuscular Volume 86 fL (79-100) Mean Corpuscular Hemoglobin 29 pg (25-35) Mean Corpuscular Hemoglobin Concent 33 g/dL (31-37) Red Cell Distribution Width 16.1 % (11.5-14.5) H Platelet Count 238 x10^3/uL (140-400) Neutrophils (%) (Auto) 55 % (31-73) Lymphocytes (%) (Auto) 31 % (24-48) Monocytes (%) (Auto) 10 % (0-9) H Eosinophils (%) (Auto) 3 % (0-3) Basophils (%) (Auto) 1 % (0-3) Neutrophils # (Auto) 2.8 x10^3uL (1.8-7.7) Lymphocytes # (Auto) 1.6 x10^3/uL (1.0-4.8) Monocytes # (Auto) 0.5 x10^3/uL (0.0-1.1) Eosinophils # (Auto) 0.2 x10^3/uL (0.0-0.7) Basophils # (Auto) 0.0 x10^3/uL (0.0-0.2) Sodium Level 140 mmol/L (136-145) Potassium Level 4.4 mmol/L (3.5-5.1) Chloride Level 102 mmol/L (98-107) Carbon Dioxide Level 33 mmol/L (21-32) H Anion Gap 5 (6-14) L Blood Urea Nitrogen 12 mg/dL (8-26) Creatinine 0.9 mg/dL (0.7-1.3) Estimated GFR (Cockcroft-Gault) 82.5 BUN/Creatinine Ratio 13 (6-20) Glucose Level 85 mg/dL (70-99) Calcium Level 9.2 mg/dL (8.5-10.1) Total Bilirubin 0.3 mg/dL (0.2-1.0) Aspartate Amino Transferase (AST) 26 U/L (15-37) Alanine Aminotransferase (ALT) 30 U/L (16-63) Alkaline Phosphatase 76 U/L (46-116) Total Protein 6.7 g/dL (6.4-8.2) Albumin 3.1 g/dL (3.4-5.0) L Albumin/Globulin Ratio 0.9 (1.0-1.7) L Current Medications: Meds: Current Medications Acetaminophen (Tylenol) 650 mg PRN Q6HRS PRN PO PAIN / TEMP; Start 10/22/17 at 18:00 Multi-Ingredient Ointment (Analgesic [place]) 1 leticia PRN QID PRN TP MUSCLE PAIN; Start 10/22/17 at 18:00 Al Hydroxide/Mg Hydroxide (Mylanta Plus Xs) 15 ml PRN AFTMEALHC PRN PO DYSPEPSIA; Start 10/22/17 at 18:00 Magnesium Hydroxide (Milk Of Magnesia) 2,400 mg PRN QHS PRN PO CONSTIPATION; Start 10/22/17 at 18:00 Amlodipine Besylate (Norvasc) 5 mg DAILY PO Last administered on 10/29/17at 09:21 ; Start 10/23/17 at 09:00 Docusate Sodium (Colace) 100 mg PRN BID PRN PO CONSTIPATION; Start 10/22/17 at 18:30 Donepezil HCl (Aricept) 5 mg QHS PO Last administered on 10/22/17at 20:20; Start 10/22/17 at 21:00; Stop 10/23/17 at 18:04; Status DC Lisinopril (Prinivil) 20 mg DAILY PO Last administered on 10/29/17 09:21; Start 10/23/17 at 09:00 Nicotine (Nicoderm Cq 21mg) 1 patch DAILY TD Last administered on 10/29/17 09: 20; Start 10/23/17 at 09:00 Olanzapine (ZyPREXA) 2.5 mg PRN Q2HR PRN PO ANXIETY / AGITATION Last administered on 10/23/17 22:55; Start 10/22/17 at 18:30 Artificial Tears (Artificial Tears) 1 drop PRN BID PRN OD DRY EYE; Start at 18:30 Cyanocobalamin (Vitamin B-12) 1,000 mcg DAILY PO Last administered on 10/29/17 09:21; Start 10/23/17 at 09:00 Donepezil HCl (Aricept) 10 mg QHS PO Last administered on 10/29/17 19:43; Start 10/23/17 at 21:00 Sertraline HCl (Zoloft) 25 mg DAILY PO Last administered on 10/24/17 08:22; Start 10/24/17 at 09:00; Stop 10/24/17 at 18:28; Status DC Sertraline HCl (Zoloft) 50 mg DAILY PO Last administered on 10/26/17 09:28; Start 10/25/17 at 09:00; Stop 10/26/17 at 16:27; Status DC Sertraline HCl (Zoloft) 50 mg DAILY PO Last administered on 10/29/17 09:21; Start 10/27/17 at 09:00 Vitamin D (Vitamin D3) 50,000 unit WEEKLY PO Last administered on 10/26/17 18: 03; Start 10/26/17 at 18:00 Trazodone HCl (Desyrel) 50 mg QHS PO Last administered on 10/29/17 19:44; Start 10/28/17 at 21:00 Active Scripts Active Reported Zyprexa (Olanzapine) 2.5 Mg Tablet 2.5 Mg PO PRN Q2HR PRN Liquitears (Polyvinyl Alcohol) 15 Ml Drops 1 Drop OD Colace (Docusate Sodium) 100 Mg Capsule 100 Mg PO PRN BID PRN NICODERM CQ 21mg (Nicotine) 1 Each Patch.td24 1 Patch TD DAILY Lisinopril 20 Mg Tablet 20 Mg PO DAILY Aricept (Donepezil Hcl) 5 Mg Tablet 5 Mg PO QHS B-12 (Cyanocobalamin (Vitamin B-12)) 1,000 Mcg Tablet.er 1,000 Mcg PO DAILY Norvasc (Amlodipine Besylate) 5 Mg Tablet 5 Mg PO DAILY I have reviewed the current psychotropics carefully including drug interactions. Risk benefit ratio favors no change other than as noted in my dictated progress note. Diagnosis: Problems: (1) Anxiety disorder (2) Impulse control disorder (3) Dementia, vascular, with depression (4) Dementia, vascular, with delusions (5) Dementia in Alzheimer's disease with depression (6) Dementia in Alzheimer's disease with delusions ARMANDO CRAIG MD Oct 29, 2017 20:52
[2017-10-30 06:17] VITALS: BP 118/70
[2017-10-30] MEDS: NICOTINE 21MG PATCH. TD SCH (09:33)
[2017-10-30] MEDS: amLODIPine BESYLATE 5 MG TABLET PO SCH (09:33)
[2017-10-30] MEDS: LISINOPRIL 20 MG TABLET PO SCH (09:33)
[2017-10-30] MEDS: SERTRALINE 50 MG TABLET. PO SCH (09:34)
[2017-10-30] MEDS: CYANOCOBALAMIN (VITAMIN B-12) 1,000 MCG TABLET. PO SCH (09:34)
[2017-10-30 15:52] VITALS: BP 129/61
[2017-10-30] MEDS: traZODone 50 MG TABLET. PO SCH (20:43)
[2017-10-30] MEDS: DONEPEZIL HCL 10 MG TABLET PO SCH (20:43)
--- NOTE | 2017-10-30 21:49 | PN ---
DATE: 10/28/2017 PSYCHIATRIC PROGRESS NOTE This late entry 10/28/20174 covers elements not covered in my initial note of 10/28/2017. SUBJECTIVE: Met with the patient in the evening of 10/28/2017. The patient slept 4-1/4 hours previous evening, otherwise remains confused but redirectable, somewhat dysphoric, anxious. REVIEW OF SYSTEMS: No CV, , pulmonary, eye, ENT system symptoms on review. Reliability is poor. MENTAL STATUS EXAM: Oriented to himself. Insight, judgment, recent and remote memory, attention, concentration, fund of knowledge poor, consistent with his diagnoses mentioned in my initial note. IMPRESSION: Major neurocognitive disorder, Alzheimer, vascular with delusion, depression, behavioral disturbance. Rest unchanged. PLAN: Start trazodone 50 mg at bedtime, november repeat x 1 for insomnia. Rest unchanged per initial note. MAN LawrenceKristy CRAIG MD DR: FARIBA/lucia JOB#: [id number] / [id number]
--- NOTE | 2017-10-30 23:14 | PDOC ---
Exam Note: [place] Note: Please also refer to the separate dictated note~for this date of service dictated separately.~Patient seen individually. Discussed the patient with Nursing staff reviewed the chart.~Reviewed interim history and current functioning. Reviewed vital signs,~Labs/ Radiology~and current medications noted below. Continue current treatment with the changes noted in the dictated addendum note Assessment: Vital Signs: Vital Signs Date Time Temp Pulse Resp B/P (MAP) Pulse Ox O2 Delivery O2 Flow Rate FiO2 10/30/17 15:52 97.0 71 19 129/61 (83) 99 10/28/17 16:03 Room Air I&O Intake and Output 10/30/17 07:00 Intake Total 1260 ml Balance 1260 ml Intake Oral 1260 ml Current Medications: Meds: Current Medications Acetaminophen (Tylenol) 650 mg PRN Q6HRS PRN PO PAIN / TEMP; Start 10/22/17 at 18:00 Multi-Ingredient Ointment (Analgesic [place]) 1 leticia PRN QID PRN TP MUSCLE PAIN; Start 10/22/17 at 18:00 Al Hydroxide/Mg Hydroxide (Mylanta Plus Xs) 15 ml PRN AFTMEALHC PRN PO DYSPEPSIA; Start 10/22/17 at 18:00 Magnesium Hydroxide (Milk Of Magnesia) 2,400 mg PRN QHS PRN PO CONSTIPATION; Start 10/22/17 at 18:00 Amlodipine Besylate (Norvasc) 5 mg DAILY PO Last administered on 10/30/17 09:33 ; Start 10/23/17 at 09:00 Docusate Sodium (Colace) 100 mg PRN BID PRN PO CONSTIPATION; Start 10/22/17 at 18:30 Donepezil HCl (Aricept) 5 mg QHS PO Last administered on 10/22/17at 20:20; Start 10/22/17 at 21:00; Stop 10/23/17 at 18:04; Status DC Lisinopril (Prinivil) 20 mg DAILY PO Last administered on 10/30/17 09:33; Start 10/23/17 at 09:00 Nicotine (Nicoderm Cq 21mg) 1 patch DAILY TD Last administered on 10/30/17 09: 33; Start 10/23/17 at 09:00 Olanzapine (ZyPREXA) 2.5 mg PRN Q2HR PRN PO ANXIETY / AGITATION Last administered on 10/23/17 22:55; Start 10/22/17 at 18:30 Artificial Tears (Artificial Tears) 1 drop PRN BID PRN OD DRY EYE; Start at 18:30 Cyanocobalamin (Vitamin B-12) 1,000 mcg DAILY PO Last administered on 10/30/17 09:34; Start 10/23/17 at 09:00 Donepezil HCl (Aricept) 10 mg QHS PO Last administered on 10/30/17 20:43; Start 10/23/17 at 21:00 Sertraline HCl (Zoloft) 25 mg DAILY PO Last administered on 10/24/17 08:22; Start 10/24/17 at 09:00; Stop 10/24/17 at 18:28; Status DC Sertraline HCl (Zoloft) 50 mg DAILY PO Last administered on 10/26/17 09:28; Start 10/25/17 at 09:00; Stop 10/26/17 at 16:27; Status DC Sertraline HCl (Zoloft) 50 mg DAILY PO Last administered on 10/30/17 09:34; Start 10/27/17 at 09:00 Vitamin D (Vitamin D3) 50,000 unit WEEKLY PO Last administered on 10/26/17 18: 03; Start 10/26/17 at 18:00 Trazodone HCl (Desyrel) 50 mg QHS PO Last administered on 10/30/17 20:43; Start 10/28/17 at 21:00 Active Scripts Active Reported Zyprexa (Olanzapine) 2.5 Mg Tablet 2.5 Mg PO PRN Q2HR PRN Liquitears (Polyvinyl Alcohol) 15 Ml Drops 1 Drop OD Colace (Docusate Sodium) 100 Mg Capsule 100 Mg PO PRN BID PRN NICODERM CQ 21mg (Nicotine) 1 Each Patch.td24 1 Patch TD DAILY Lisinopril 20 Mg Tablet 20 Mg PO DAILY Aricept (Donepezil Hcl) 5 Mg Tablet 5 Mg PO QHS B-12 (Cyanocobalamin (Vitamin B-12)) 1,000 Mcg Tablet.er 1,000 Mcg PO DAILY Norvasc (Amlodipine Besylate) 5 Mg Tablet 5 Mg PO DAILY I have reviewed the current psychotropics carefully including drug interactions. Risk benefit ratio favors no change other than as noted in my dictated progress note. Diagnosis: Problems: (1) Anxiety disorder (2) Impulse control disorder (3) Dementia, vascular, with depression (4) Dementia, vascular, with delusions (5) Dementia in Alzheimer's disease with depression (6) Dementia in Alzheimer's disease with delusions ARMANDO CRAIG MD Oct 30, 2017 23:14
[2017-10-31 05:47] VITALS: BP 112/58
--- NOTE | 2017-10-31 07:40 | PN ---
DATE: 10/29/2017 PSYCHIATRIC PROGRESS NOTE This is a late entry for 10/29/2017, covers elements not covered in my initial note of 10/29/2017. Met with the patient in the evening of 10/29/2017 and staffed at a treatment team meeting with the entire team morning of 10/29/2017. The patient slept 6-1/2 hours, remains confused, calm, cooperative, somewhat withdrawn. He has been assessed for [facility], may be able to transfer there early next week per social service staff. REVIEW OF SYSTEMS: No CV, , pulmonary, eye, ENT system symptoms on review. Reliability poor. MENTAL STATUS EXAM: Oriented to himself. Insight, judgment, recent and remote memory, attention, concentration, fund of knowledge poor, consistent with his diagnosis mentioned in my initial note. IMPRESSION: Major neurocognitive disorder, Alzheimer, vascular with depression, delusion, behavioral disturbance. PLAN: Continue psychotropics mentioned in my initial note. Trazodone was added for insomnia and seems to be effective. MAN Clayton CRAIG MD DR: FARIBA/lucia JOB#: [id number] / [id number]
[2017-10-31] MEDS: SERTRALINE 50 MG TABLET. PO SCH (08:36)
[2017-10-31] MEDS: NICOTINE 21MG PATCH. TD SCH (08:37)
[2017-10-31] MEDS: CYANOCOBALAMIN (VITAMIN B-12) 1,000 MCG TABLET. PO SCH (08:37)
[2017-10-31] MEDS: amLODIPine BESYLATE 5 MG TABLET PO SCH (08:39)
[2017-10-31] MEDS: LISINOPRIL 20 MG TABLET PO SCH (08:39)
[2017-10-31 08:40] VITALS: BP 107/67
[2017-10-31 15:59] VITALS: BP 113/83
[2017-10-31] MEDS: traZODone 50 MG TABLET. PO SCH (19:54)
[2017-10-31] MEDS: DONEPEZIL HCL 10 MG TABLET PO SCH (19:54)
--- NOTE | 2017-10-31 22:46 | PDOC ---
Exam Note: [place] Note: Please also refer to the separate dictated note~for this date of service dictated separately.~Patient seen individually. Discussed the patient with Nursing staff reviewed the chart.~Reviewed interim history and current functioning. Reviewed vital signs,~Labs/ Radiology~and current medications noted below. Continue current treatment with the changes noted in the dictated addendum note Assessment: Vital Signs: Vital Signs Date Time Temp Pulse Resp B/P (MAP) Pulse Ox O2 Delivery O2 Flow Rate FiO2 10/31/17 15:59 97.3 66 20 113/83 (93) 98 10/28/17 16:03 Room Air I&O Intake and Output 10/31/17 07:00 Intake Total 960 ml Balance 960 ml Intake Oral 960 ml Current Medications: Meds: Current Medications Acetaminophen (Tylenol) 650 mg PRN Q6HRS PRN PO PAIN / TEMP; Start 10/22/17 at 18:00 Multi-Ingredient Ointment (Analgesic [place]) 1 leticia PRN QID PRN TP MUSCLE PAIN; Start 10/22/17 at 18:00 Al Hydroxide/Mg Hydroxide (Mylanta Plus Xs) 15 ml PRN AFTMEALHC PRN PO DYSPEPSIA; Start 10/22/17 at 18:00 Magnesium Hydroxide (Milk Of Magnesia) 2,400 mg PRN QHS PRN PO CONSTIPATION; Start 10/22/17 at 18:00 Amlodipine Besylate (Norvasc) 5 mg DAILY PO Last administered on 10/31/17at 08:39 ; Start 10/23/17 at 09:00 Docusate Sodium (Colace) 100 mg PRN BID PRN PO CONSTIPATION; Start 10/22/17 at 18:30 Donepezil HCl (Aricept) 5 mg QHS PO Last administered on 10/22/17at 20:20; Start 10/22/17 at 21:00; Stop 10/23/17 at 18:04; Status DC Lisinopril (Prinivil) 20 mg DAILY PO Last administered on 10/31/17at 08:39; Start 10/23/17 at 09:00 Nicotine (Nicoderm Cq 21mg) 1 patch DAILY TD Last administered on 10/31/17at 08: 37; Start 10/23/17 at 09:00 Olanzapine (ZyPREXA) 2.5 mg PRN Q2HR PRN PO ANXIETY / AGITATION Last administered on 10/23/17at 22:55; Start 10/22/17 at 18:30 Artificial Tears (Artificial Tears) 1 drop PRN BID PRN OD DRY EYE; Start at 18:30 Cyanocobalamin (Vitamin B-12) 1,000 mcg DAILY PO Last administered on 10/31/17 08:37; Start 10/23/17 at 09:00 Donepezil HCl (Aricept) 10 mg QHS PO Last administered on 10/31/17 19:54; Start 10/23/17 at 21:00 Sertraline HCl (Zoloft) 25 mg DAILY PO Last administered on 10/24/17 08:22; Start 10/24/17 at 09:00; Stop 10/24/17 at 18:28; Status DC Sertraline HCl (Zoloft) 50 mg DAILY PO Last administered on 10/26/17at 09:28; Start 10/25/17 at 09:00; Stop 10/26/17 at 16:27; Status DC Sertraline HCl (Zoloft) 50 mg DAILY PO Last administered on 10/31/17 08:36; Start 10/27/17 at 09:00 Vitamin D (Vitamin D3) 50,000 unit WEEKLY PO Last administered on 10/26/17 18: 03; Start 10/26/17 at 18:00 Trazodone HCl (Desyrel) 50 mg QHS PO Last administered on 10/31/17 19:54; Start 10/28/17 at 21:00 Active Scripts Active Reported Zyprexa (Olanzapine) 2.5 Mg Tablet 2.5 Mg PO PRN Q2HR PRN Liquitears (Polyvinyl Alcohol) 15 Ml Drops 1 Drop OD Colace (Docusate Sodium) 100 Mg Capsule 100 Mg PO PRN BID PRN NICODERM CQ 21mg (Nicotine) 1 Each Patch.td24 1 Patch TD DAILY Lisinopril 20 Mg Tablet 20 Mg PO DAILY Aricept (Donepezil Hcl) 5 Mg Tablet 5 Mg PO QHS B-12 (Cyanocobalamin (Vitamin B-12)) 1,000 Mcg Tablet.er 1,000 Mcg PO DAILY Norvasc (Amlodipine Besylate) 5 Mg Tablet 5 Mg PO DAILY I have reviewed the current psychotropics carefully including drug interactions. Risk benefit ratio favors no change other than as noted in my dictated progress note. Diagnosis: Problems: (1) Anxiety disorder (2) Impulse control disorder (3) Dementia, vascular, with depression (4) Dementia, vascular, with delusions (5) Dementia in Alzheimer's disease with depression (6) Dementia in Alzheimer's disease with delusions ARMANDO CRAIG MD Oct 31, 2017 22:46
[2017-11-01 05:53] VITALS: BP 122/77
[2017-11-01] MEDS: LISINOPRIL 20 MG TABLET PO SCH (07:47)
[2017-11-01] MEDS: CYANOCOBALAMIN (VITAMIN B-12) 1,000 MCG TABLET. PO SCH (07:47)
[2017-11-01] MEDS: SERTRALINE 50 MG TABLET. PO SCH (07:47)
[2017-11-01] MEDS: amLODIPine BESYLATE 5 MG TABLET PO SCH (07:47)
[2017-11-01] MEDS: NICOTINE 21MG PATCH. TD SCH (07:48)
[2017-11-01 15:41] VITALS: BP 107/65
[2017-11-01] MEDS: DONEPEZIL HCL 10 MG TABLET PO SCH (19:59)
[2017-11-01] MEDS: traZODone 50 MG TABLET. PO SCH (19:59)
--- NOTE | 2017-11-01 20:51 | PDOC ---
Exam Note: [place] Note: Please also refer to the separate dictated note~for this date of service dictated separately.~Patient seen individually. Discussed the patient with Nursing staff reviewed the chart.~Reviewed interim history and current functioning. Reviewed vital signs,~Labs/ Radiology~and current medications noted below. Continue current treatment with the changes noted in the dictated addendum note Assessment: Vital Signs: Vital Signs Date Time Temp Pulse Resp B/P (MAP) Pulse Ox O2 Delivery O2 Flow Rate FiO2 11/01/17 15:41 97.3 64 16 107/65 (79) 100 10/28/17 16:03 Room Air I&O Intake and Output 11/01/17 07:00 Intake Total 780 ml Balance 780 ml Intake Oral 780 ml Current Medications: Meds: Current Medications Acetaminophen (Tylenol) 650 mg PRN Q6HRS PRN PO PAIN / TEMP; Start 10/22/17 at 18:00 Multi-Ingredient Ointment (Analgesic [place]) 1 leticia PRN QID PRN TP MUSCLE PAIN; Start 10/22/17 at 18:00 Al Hydroxide/Mg Hydroxide (Mylanta Plus Xs) 15 ml PRN AFTMEALHC PRN PO DYSPEPSIA; Start 10/22/17 at 18:00 Magnesium Hydroxide (Milk Of Magnesia) 2,400 mg PRN QHS PRN PO CONSTIPATION; Start 10/22/17 at 18:00 Amlodipine Besylate (Norvasc) 5 mg DAILY PO Last administered on 11/01/17 07:47 ; Start 10/23/17 at 09:00 Docusate Sodium (Colace) 100 mg PRN BID PRN PO CONSTIPATION; Start 10/22/17 at 18:30 Donepezil HCl (Aricept) 5 mg QHS PO Last administered on 10/22/17at 20:20; Start 10/22/17 at 21:00; Stop 10/23/17 at 18:04; Status DC Lisinopril (Prinivil) 20 mg DAILY PO Last administered on 11/01/17 07:47; Start 10/23/17 at 09:00 Nicotine (Nicoderm Cq 21mg) 1 patch DAILY TD Last administered on 11/01/17 07: 48; Start 10/23/17 at 09:00 Olanzapine (ZyPREXA) 2.5 mg PRN Q2HR PRN PO ANXIETY / AGITATION Last administered on 10/23/17 22:55; Start 10/22/17 at 18:30 Artificial Tears (Artificial Tears) 1 drop PRN BID PRN OD DRY EYE; Start at 18:30 Cyanocobalamin (Vitamin B-12) 1,000 mcg DAILY PO Last administered on 11/01/17 07:47; Start 10/23/17 at 09:00 Donepezil HCl (Aricept) 10 mg QHS PO Last administered on 11/01/17 19:59; Start 10/23/17 at 21:00 Sertraline HCl (Zoloft) 25 mg DAILY PO Last administered on 10/24/17 08:22; Start 10/24/17 at 09:00; Stop 10/24/17 at 18:28; Status DC Sertraline HCl (Zoloft) 50 mg DAILY PO Last administered on 10/26/17 09:28; Start 10/25/17 at 09:00; Stop 10/26/17 at 16:27; Status DC Sertraline HCl (Zoloft) 50 mg DAILY PO Last administered on 11/01/17 07:47; Start 10/27/17 at 09:00 Vitamin D (Vitamin D3) 50,000 unit WEEKLY PO Last administered on 10/26/17 18: 03; Start 10/26/17 at 18:00 Trazodone HCl (Desyrel) 50 mg QHS PO Last administered on 11/01/17 19:59; Start 10/28/17 at 21:00 Active Scripts Active Reported Zyprexa (Olanzapine) 2.5 Mg Tablet 2.5 Mg PO PRN Q2HR PRN Liquitears (Polyvinyl Alcohol) 15 Ml Drops 1 Drop OD Colace (Docusate Sodium) 100 Mg Capsule 100 Mg PO PRN BID PRN NICODERM CQ 21mg (Nicotine) 1 Each Patch.td24 1 Patch TD DAILY Lisinopril 20 Mg Tablet 20 Mg PO DAILY Aricept (Donepezil Hcl) 5 Mg Tablet 5 Mg PO QHS B-12 (Cyanocobalamin (Vitamin B-12)) 1,000 Mcg Tablet.er 1,000 Mcg PO DAILY Norvasc (Amlodipine Besylate) 5 Mg Tablet 5 Mg PO DAILY I have reviewed the current psychotropics carefully including drug interactions. Risk benefit ratio favors no change other than as noted in my dictated progress note. Diagnosis: Problems: (1) Anxiety disorder (2) Impulse control disorder (3) Dementia, vascular, with depression (4) Dementia, vascular, with delusions (5) Dementia in Alzheimer's disease with depression (6) Dementia in Alzheimer's disease with delusions ARMANDO CRAIG MD Nov 01, 2017 20:51
--- NOTE | 2017-11-01 21:52 | PN ---
DATE: 10/30/2017 This late entry of 10/30/2016 covers elements not covered in my initial note 10/30/2016. Met with the patient in the evening of 10/30/2017. Overall, the patient remains confused, but fairly cooperative, less depressed and anxious. REVIEW OF SYSTEMS: No CV, , pulmonary, eye, ENT system symptoms on review. Reliability poor. MENTAL STATUS EXAM: Oriented to himself. Insight, judgment, recent and remote memory, attention, concentration, fund of knowledge poor, consistent with his diagnosis mentioned in my initial note. IMPRESSION: Major neurocognitive disorder, Alzheimer, vascular with delusion, depression, behavioral disturbance. PLAN: Continue psychotropics mentioned in my initial note. May need to increase Zoloft gradually. MAN Clayton CRAIG MD DR: FARIBA/lucia JOB#: [id number] / [id number]
--- NOTE | 2017-11-02 01:32 | PN ---
DATE: 10/31/2017 PSYCHIATRIC PROGRESS NOTE This late entry 10/31/2017 covers elements not covered in my initial note 10/31/2017. SUBJECTIVE: I met with the patient in the evening of 10/31/2017. Overall, the patient remains confused, but is pleasant, cooperative. He gets a little anxious at times, but not aggressive. REVIEW OF SYSTEMS: No CV, , pulmonary, eye, ENT system symptoms on review. MENTAL STATUS EXAM: Oriented to himself. Insight, judgment, recent and remote memory, attention, concentration, fund of knowledge poor, consistent with his diagnosis mentioned in my initial note. IMPRESSION: Major neurocognitive disorder, Alzheimer, vascular with depression, delusion, behavioral disturbance. Rest unchanged. PLAN: Continue current psychotropics. May consider increasing Zoloft to 75 mg a day. MAN Clayton CRAIG MD DR: FARIBA/lucia JOB#: [id number] / [id number]
[2017-11-02 06:17] VITALS: BP 120/70
[2017-11-02] MEDS: CYANOCOBALAMIN (VITAMIN B-12) 1,000 MCG TABLET. PO SCH (07:58)
[2017-11-02] MEDS: amLODIPine BESYLATE 5 MG TABLET PO SCH (07:58)
[2017-11-02] MEDS: LISINOPRIL 20 MG TABLET PO SCH (07:59)
[2017-11-02] MEDS: SERTRALINE 50 MG TABLET. PO SCH (07:59)
[2017-11-02] MEDS: NICOTINE 21MG PATCH. TD SCH (07:59)
[2017-11-02] MEDS: CHOLECALCIFEROL (VITAMIN D3) 50,000 UNIT CAPSULE PO SCH (08:00)
[2017-11-02 16:09] VITALS: BP 103/51
[2017-11-02] MEDS: DONEPEZIL HCL 10 MG TABLET PO SCH (19:15)
[2017-11-02] MEDS: traZODone 50 MG TABLET. PO SCH (19:15)
--- NOTE | 2017-11-02 21:22 | PN ---
DATE: 11/01/2017 This is a late entry for 11/01/2017 covers elements not covered in my initial note for 11/01/2017. SUBJECTIVE: I met with the patient in the evening of 11/01/2017. The patient remains confused, pleasant, oriented just to himself, calm, compliant. REVIEW OF SYSTEMS: No CV, , pulmonary, eye, ENT system symptoms on review. Reliability poor. MENTAL STATUS EXAM: Oriented to himself. Insight, judgment, recent and remote memory, attention, concentration, fund of knowledge poor, consistent with his diagnosis mentioned in my initial note. IMPRESSION: Major neurocognitive disorder, Alzheimer, vascular with depression, delusion, behavioral disturbance. Rest unchanged. PLAN: Continue psychotropics mentioned in my initial note including Zoloft 50 mg a day. MAN Clayton CRAIG MD DR: FARIBA/lucia JOB#: [id number] / [id number]
--- NOTE | 2017-11-02 22:01 | PDOC ---
Exam Note: [place] Note: Please also refer to the separate dictated note~for this date of service dictated separately.~Patient seen individually. Discussed the patient with Nursing staff reviewed the chart.~Reviewed interim history and current functioning. Reviewed vital signs,~Labs/ Radiology~and current medications noted below. Continue current treatment with the changes noted in the dictated addendum note Assessment: Vital Signs: Vital Signs Date Time Temp Pulse Resp B/P (MAP) Pulse Ox O2 Delivery O2 Flow Rate FiO2 11/02/17 16:09 97.1 62 16 103/51 (68) 95 10/28/17 16:03 Room Air I&O Intake and Output 11/02/17 07:00 Intake Total 1560 ml Balance 1560 ml Intake Oral 1560 ml # Voids 2 # Bowel Movements 2 Current Medications: Meds: Current Medications Acetaminophen (Tylenol) 650 mg PRN Q6HRS PRN PO PAIN / TEMP; Start 10/22/17 at 18:00 Multi-Ingredient Ointment (Analgesic [place]) 1 leticia PRN QID PRN TP MUSCLE PAIN; Start 10/22/17 at 18:00 Al Hydroxide/Mg Hydroxide (Mylanta Plus Xs) 15 ml PRN AFTMEALHC PRN PO DYSPEPSIA; Start 10/22/17 at 18:00 Magnesium Hydroxide (Milk Of Magnesia) 2,400 mg PRN QHS PRN PO CONSTIPATION; Start 10/22/17 at 18:00 Amlodipine Besylate (Norvasc) 5 mg DAILY PO Last administered on 11/02/17at 07:58 ; Start 10/23/17 at 09:00 Docusate Sodium (Colace) 100 mg PRN BID PRN PO CONSTIPATION; Start 10/22/17 at 18:30 Donepezil HCl (Aricept) 5 mg QHS PO Last administered on 10/22/17at 20:20; Start 10/22/17 at 21:00; Stop 10/23/17 at 18:04; Status DC Lisinopril (Prinivil) 20 mg DAILY PO Last administered on 11/02/17at 07:59; Start 10/23/17 at 09:00 Nicotine (Nicoderm Cq 21mg) 1 patch DAILY TD Last administered on 11/02/17at 07: 59; Start 10/23/17 at 09:00 Olanzapine (ZyPREXA) 2.5 mg PRN Q2HR PRN PO ANXIETY / AGITATION Last administered on 10/23/17at 22:55; Start 10/22/17 at 18:30 Artificial Tears (Artificial Tears) 1 drop PRN BID PRN OD DRY EYE; Start at 18:30 Cyanocobalamin (Vitamin B-12) 1,000 mcg DAILY PO Last administered on 11/02/17at 07:58; Start 10/23/17 at 09:00 Donepezil HCl (Aricept) 10 mg QHS PO Last administered on 11/02/17at 19:15; Start 10/23/17 at 21:00 Sertraline HCl (Zoloft) 25 mg DAILY PO Last administered on 10/24/17at 08:22; Start 10/24/17 at 09:00; Stop 10/24/17 at 18:28; Status DC Sertraline HCl (Zoloft) 50 mg DAILY PO Last administered on 10/26/17at 09:28; Start 10/25/17 at 09:00; Stop 10/26/17 at 16:27; Status DC Sertraline HCl (Zoloft) 50 mg DAILY PO Last administered on 11/02/17at 07:59; Start 10/27/17 at 09:00 Vitamin D (Vitamin D3) 50,000 unit WEEKLY PO Last administered on 11/02/17at 08: 00; Start 10/26/17 at 18:00 Trazodone HCl (Desyrel) 50 mg QHS PO Last administered on 11/02/17at 19:15; Start 10/28/17 at 21:00 Active Scripts Active Reported Zyprexa (Olanzapine) 2.5 Mg Tablet 2.5 Mg PO PRN Q2HR PRN Liquitears (Polyvinyl Alcohol) 15 Ml Drops 1 Drop OD Colace (Docusate Sodium) 100 Mg Capsule 100 Mg PO PRN BID PRN NICODERM CQ 21mg (Nicotine) 1 Each Patch.td24 1 Patch TD DAILY Lisinopril 20 Mg Tablet 20 Mg PO DAILY Aricept (Donepezil Hcl) 5 Mg Tablet 5 Mg PO QHS B-12 (Cyanocobalamin (Vitamin B-12)) 1,000 Mcg Tablet.er 1,000 Mcg PO DAILY Norvasc (Amlodipine Besylate) 5 Mg Tablet 5 Mg PO DAILY I have reviewed the current psychotropics carefully including drug interactions. Risk benefit ratio favors no change other than as noted in my dictated progress note. Diagnosis: Problems: (1) Anxiety disorder (2) Impulse control disorder (3) Dementia, vascular, with depression (4) Dementia, vascular, with delusions (5) Dementia in Alzheimer's disease with depression (6) Dementia in Alzheimer's disease with delusions ARMANDO CRAIG MD Nov 02, 2017 22:01
[2017-11-03 06:01] VITALS: BP 147/88
[2017-11-03] MEDS: LISINOPRIL 20 MG TABLET PO SCH (08:09)
[2017-11-03] MEDS: CYANOCOBALAMIN (VITAMIN B-12) 1,000 MCG TABLET. PO SCH (08:09)
[2017-11-03] MEDS: NICOTINE 21MG PATCH. TD SCH (08:09)
[2017-11-03] MEDS: amLODIPine BESYLATE 5 MG TABLET PO SCH (08:09)
[2017-11-03] MEDS: SERTRALINE 50 MG TABLET. PO SCH (08:10)
--- NOTE | 2017-11-03 13:30 | PN ---
DATE: 11/02/2017 This is a late entry for 11/02/2017, covers elements not covered in my initial note 11/02/2017. Met with the patient in the evening of 11/02/2017. Overall, the patient remains confused, but is fairly pleasant, cooperative, slept 6-1/2 hours, somewhat withdrawn. No overt psychotic symptoms noted. REVIEW OF SYSTEMS: No CV, , pulmonary, eye, ENT system symptoms on review. Reliability poor. MENTAL STATUS EXAM: Oriented to himself. Insight, judgment, recent and remote memory, attention, concentration, fund of knowledge poor, consistent with his diagnosis. Otherwise, quite pleasant. LABORATORY DATA: Reviewed. IMPRESSION: Major neurocognitive disorder, Alzheimer, vascular with depression, delusion, behavioral disturbance. Rest unchanged. PLAN: Continue psychotropics mentioned in my initial note. Adjust as clinically indicated. MAN Clayton CRAIG MD DR: FARIBA/lucia JOB#: [id number] / [id number]
[2017-11-03 15:40] VITALS: BP 109/69
[2017-11-03] MEDS: traZODone 50 MG TABLET. PO SCH (19:16)
[2017-11-03] MEDS: DONEPEZIL HCL 10 MG TABLET PO SCH (19:16)
[2017-11-03] MEDS: MIRTAZAPINE 7.5 MG TABLET. PO SCH (20:00)
--- NOTE | 2017-11-03 20:50 | PDOC ---
Exam Note: [place] Note: Please also refer to the separate dictated note~for this date of service dictated separately.~Patient seen individually. Discussed the patient with Nursing staff reviewed the chart.~Reviewed interim history and current functioning. Reviewed vital signs,~Labs/ Radiology~and current medications noted below. Continue current treatment with the changes noted in the dictated addendum note Assessment: Vital Signs: Vital Signs Date Time Temp Pulse Resp B/P (MAP) Pulse Ox O2 Delivery O2 Flow Rate FiO2 11/03/17 15:40 97.2 69 18 109/69 (82) 95 10/28/17 16:03 Room Air I&O Intake and Output 11/03/17 07:00 Intake Total 1080 ml Balance 1080 ml Intake Oral 1080 ml # Voids 2 Current Medications: Meds: Current Medications Acetaminophen (Tylenol) 650 mg PRN Q6HRS PRN PO PAIN / TEMP; Start 10/22/17 at 18:00 Multi-Ingredient Ointment (Analgesic [place]) 1 leticia PRN QID PRN TP MUSCLE PAIN; Start 10/22/17 at 18:00 Al Hydroxide/Mg Hydroxide (Mylanta Plus Xs) 15 ml PRN AFTMEALHC PRN PO DYSPEPSIA; Start 10/22/17 at 18:00 Magnesium Hydroxide (Milk Of Magnesia) 2,400 mg PRN QHS PRN PO CONSTIPATION; Start 10/22/17 at 18:00 Amlodipine Besylate (Norvasc) 5 mg DAILY PO Last administered on 11/03/17at 08: 09; Start 10/23/17 at 09:00 Docusate Sodium (Colace) 100 mg PRN BID PRN PO CONSTIPATION; Start 10/22/17 at 18:30 Donepezil HCl (Aricept) 5 mg QHS PO Last administered on 10/22/17at 20:20; Start 10/22/17 at 21:00; Stop 10/23/17 at 18:04; Status DC Lisinopril (Prinivil) 20 mg DAILY PO Last administered on 11/03/17at 08:09; Start 10/23/17 at 09:00 Nicotine (Nicoderm Cq 21mg) 1 patch DAILY TD Last administered on 11/03/17at 08: 09; Start 10/23/17 at 09:00 Olanzapine (ZyPREXA) 2.5 mg PRN Q2HR PRN PO ANXIETY / AGITATION Last administered on 10/23/17at 22:55; Start 10/22/17 at 18:30 Artificial Tears (Artificial Tears) 1 drop PRN BID PRN OD DRY EYE; Start at 18:30 Cyanocobalamin (Vitamin B-12) 1,000 mcg DAILY PO Last administered on 08:09; Start 10/23/17 at 09:00 Donepezil HCl (Aricept) 10 mg QHS PO Last administered on 11/03/17 19:16; Start 10/23/17 at 21:00 Sertraline HCl (Zoloft) 25 mg DAILY PO Last administered on 10/24/17 08:22; Start 10/24/17 at 09:00; Stop 10/24/17 at 18:28; Status DC Sertraline HCl (Zoloft) 50 mg DAILY PO Last administered on 10/26/17at 09:28; Start 10/25/17 at 09:00; Stop 10/26/17 at 16:27; Status DC Sertraline HCl (Zoloft) 50 mg DAILY PO Last administered on 11/03/17 08:10; Start 10/27/17 at 09:00 Vitamin D (Vitamin D3) 50,000 unit WEEKLY PO Last administered on 11/02/17 08: 00; Start 10/26/17 at 18:00 Trazodone HCl (Desyrel) 50 mg QHS PO Last administered on 11/03/17 19:16; Start 10/28/17 at 21:00 Mirtazapine (Remeron) 7.5 mg QHS PO Last administered on 11/03/17at 20:00; Start 11/03/17 at 21:00 Active Scripts Active Reported Zyprexa (Olanzapine) 2.5 Mg Tablet 2.5 Mg PO PRN Q2HR PRN Liquitears (Polyvinyl Alcohol) 15 Ml Drops 1 Drop OD Colace (Docusate Sodium) 100 Mg Capsule 100 Mg PO PRN BID PRN NICODERM CQ 21mg (Nicotine) 1 Each Patch.td24 1 Patch TD DAILY Lisinopril 20 Mg Tablet 20 Mg PO DAILY Aricept (Donepezil Hcl) 5 Mg Tablet 5 Mg PO QHS B-12 (Cyanocobalamin (Vitamin B-12)) 1,000 Mcg Tablet.er 1,000 Mcg PO DAILY Norvasc (Amlodipine Besylate) 5 Mg Tablet 5 Mg PO DAILY I have reviewed the current psychotropics carefully including drug interactions. Risk benefit ratio favors no change other than as noted in my dictated progress note. Diagnosis: Problems: (1) Anxiety disorder (2) Impulse control disorder (3) Dementia, vascular, with depression (4) Dementia, vascular, with delusions (5) Dementia in Alzheimer's disease with depression (6) Dementia in Alzheimer's disease with delusions ARMANDO CRAIG MD Nov 03, 2017 20:50
[2017-11-04 06:33] VITALS: BP 132/81
[2017-11-04] MEDS: CYANOCOBALAMIN (VITAMIN B-12) 1,000 MCG TABLET. PO SCH (09:27)
[2017-11-04] MEDS: LISINOPRIL 20 MG TABLET PO SCH (09:27)
[2017-11-04] MEDS: SERTRALINE 50 MG TABLET. PO SCH (09:28)
[2017-11-04] MEDS: amLODIPine BESYLATE 5 MG TABLET PO SCH (09:28)
[2017-11-04] MEDS: NICOTINE 21MG PATCH. TD SCH (09:28)
[2017-11-04 16:20] VITALS: BP 98/56
[2017-11-04] MEDS: MIRTAZAPINE 7.5 MG TABLET. PO SCH (19:28)
[2017-11-04] MEDS: traZODone 50 MG TABLET. PO SCH (19:28)
[2017-11-04] MEDS: DONEPEZIL HCL 10 MG TABLET PO SCH (19:28)
--- NOTE | 2017-11-04 20:45 | PDOC ---
Exam Note: [place] Note: Please also refer to the separate dictated note~for this date of service dictated separately.~Patient seen individually. Discussed the patient with Nursing staff reviewed the chart.~Reviewed interim history and current functioning. Reviewed vital signs,~Labs/ Radiology~and current medications noted below. Continue current treatment with the changes noted in the dictated addendum note Assessment: Vital Signs: Vital Signs Date Time Temp Pulse Resp B/P (MAP) Pulse Ox O2 Delivery O2 Flow Rate FiO2 11/04/17 16:20 97.4 55 16 98/56 (70) 98 11/04/17 06:33 Room Air I&O Intake and Output 11/04/17 07:00 Intake Total 1080 ml Balance 1080 ml Intake Oral 1080 ml # Voids 2 Current Medications: Meds: Current Medications Acetaminophen (Tylenol) 650 mg PRN Q6HRS PRN PO PAIN / TEMP; Start 10/22/17 at 18:00 Multi-Ingredient Ointment (Analgesic [place]) 1 leticia PRN QID PRN TP MUSCLE PAIN; Start 10/22/17 at 18:00 Al Hydroxide/Mg Hydroxide (Mylanta Plus Xs) 15 ml PRN AFTMEALHC PRN PO DYSPEPSIA; Start 10/22/17 at 18:00 Magnesium Hydroxide (Milk Of Magnesia) 2,400 mg PRN QHS PRN PO CONSTIPATION; Start 10/22/17 at 18:00 Amlodipine Besylate (Norvasc) 5 mg DAILY PO Last administered on 11/04/17at 09: 28; Start 10/23/17 at 09:00 Docusate Sodium (Colace) 100 mg PRN BID PRN PO CONSTIPATION; Start 10/22/17 at 18:30 Donepezil HCl (Aricept) 5 mg QHS PO Last administered on 10/22/17at 20:20; Start 10/22/17 at 21:00; Stop 10/23/17 at 18:04; Status DC Lisinopril (Prinivil) 20 mg DAILY PO Last administered on 11/04/17at 09:27; Start 10/23/17 at 09:00 Nicotine (Nicoderm Cq 21mg) 1 patch DAILY TD Last administered on 11/04/17at 09: 28; Start 10/23/17 at 09:00 Olanzapine (ZyPREXA) 2.5 mg PRN Q2HR PRN PO ANXIETY / AGITATION Last administered on 10/23/17at 22:55; Start 10/22/17 at 18:30 Artificial Tears (Artificial Tears) 1 drop PRN BID PRN OD DRY EYE; Start at 18:30 Cyanocobalamin (Vitamin B-12) 1,000 mcg DAILY PO Last administered on 09:27; Start 10/23/17 at 09:00 Donepezil HCl (Aricept) 10 mg QHS PO Last administered on 11/04/17 19:28; Start 10/23/17 at 21:00 Sertraline HCl (Zoloft) 25 mg DAILY PO Last administered on 10/24/17 08:22; Start 10/24/17 at 09:00; Stop 10/24/17 at 18:28; Status DC Sertraline HCl (Zoloft) 50 mg DAILY PO Last administered on 10/26/17 09:28; Start 10/25/17 at 09:00; Stop 10/26/17 at 16:27; Status DC Sertraline HCl (Zoloft) 50 mg DAILY PO Last administered on 11/04/17 09:28; Start 10/27/17 at 09:00 Vitamin D (Vitamin D3) 50,000 unit WEEKLY PO Last administered on 11/02/17 08: 00; Start 10/26/17 at 18:00 Trazodone HCl (Desyrel) 50 mg QHS PO Last administered on 11/04/17 19:28; Start 10/28/17 at 21:00 Mirtazapine (Remeron) 7.5 mg QHS PO Last administered on 11/04/17 19:28; Start 11/03/17 at 21:00 Active Scripts Active Reported Zyprexa (Olanzapine) 2.5 Mg Tablet 2.5 Mg PO PRN Q2HR PRN Liquitears (Polyvinyl Alcohol) 15 Ml Drops 1 Drop OD Colace (Docusate Sodium) 100 Mg Capsule 100 Mg PO PRN BID PRN NICODERM CQ 21mg (Nicotine) 1 Each Patch.td24 1 Patch TD DAILY Lisinopril 20 Mg Tablet 20 Mg PO DAILY Aricept (Donepezil Hcl) 5 Mg Tablet 5 Mg PO QHS B-12 (Cyanocobalamin (Vitamin B-12)) 1,000 Mcg Tablet.er 1,000 Mcg PO DAILY Norvasc (Amlodipine Besylate) 5 Mg Tablet 5 Mg PO DAILY I have reviewed the current psychotropics carefully including drug interactions. Risk benefit ratio favors no change other than as noted in my dictated progress note. Diagnosis: Problems: (1) Anxiety disorder (2) Impulse control disorder (3) Dementia, vascular, with depression (4) Dementia, vascular, with delusions (5) Dementia in Alzheimer's disease with depression (6) Dementia in Alzheimer's disease with delusions ARMANDO CRAIG MD Nov 04, 2017 20:45
--- NOTE | 2017-11-04 20:52 | PN ---
DATE: 11/03/2017 This is a late entry of 11/03/2017 covers elements not covered in my initial note of 11/03/2017. SUBJECTIVE: I met with the patient in the evening of 11/03/2017. The patient slept 5-3/4 hours previous evening. He has been somewhat withdrawn, confused, oriented to himself, but pleasant, not aggressive. REVIEW OF SYSTEMS: No CV, , pulmonary, eye, ENT system symptoms on review. Reliability poor, met with him in his room. MENTAL STATUS EXAM: Oriented to himself. Insight, judgment, recent and remote memory, attention, concentration, fund of knowledge poor, consistent with his diagnosis mentioned in my initial note. IMPRESSION: Major neurocognitive disorder, Alzheimer, vascular with depression, delusion, behavioral disturbance. Rest unchanged. PLAN: Start Remeron 7.5 mg p.o. at bedtime to help with insomnia. Continue rest unchanged per initial note. ARMANDO CRAIG MD DR: FARIBA/lucia JOB#: [id number] / [id number]
[2017-11-05 06:02] VITALS: BP 108/59
[2017-11-05] MEDS: LISINOPRIL 20 MG TABLET PO SCH (07:59)
[2017-11-05] MEDS: NICOTINE 21MG PATCH. TD SCH (07:59)
[2017-11-05] MEDS: SERTRALINE 50 MG TABLET. PO SCH (08:00)
[2017-11-05] MEDS: amLODIPine BESYLATE 5 MG TABLET PO SCH (08:00)
[2017-11-05] MEDS: CYANOCOBALAMIN (VITAMIN B-12) 1,000 MCG TABLET. PO SCH (08:00)
[2017-11-05 09:58] LABS: ALBUMIN 3.1 g/dL (3.4-5.0); ALBUMIN/GLOBULIN RATIO 0.9 (1.0-1.7); CALCIUM 9.4 mg/dL (8.5-10.1); CREATININE 1.2 mg/dL (0.7-1.3); GFR 59.2; POTASSIUM 3.9 mmol/L (3.5-5.1); TOTAL BILIRUBIN 0.2 mg/dL (0.2-1.0); TOTAL PROTEIN 6.7 g/dL (6.4-8.2)
[2017-11-05 15:29] VITALS: BP 105/76
[2017-11-05 16:33] LABS: BASO % 1 % (0-3); EOS # 0.1 x10^3/uL (0.0-0.7); EOS % 2 % (0-3); HEMOGLOBIN 15.1 g/dL (13.0-17.5); LYMPH # 1.7 x10^3/uL (1.0-4.8); LYMPH % 28 % (24-48); MEAN CORPUSCULAR HEMOGLOBIN 29 pg (25-35); MEAN CORPUSCULAR HGB CONC 33 g/dL (31-37); MEAN CORPUSCULAR VOLUME 88 fL (79-100); MONO # 0.4 x10^3/uL (0.0-1.1); MONO % 7 % (0-9); NEUT # 3.7 x10^3uL (1.8-7.7); NEUT % 62 % (31-73); PLATELET COUNT 228 x10^3/uL (140-400); RED BLOOD COUNT 5.21 x10^6/uL (4.30-5.70); RED CELL DISTRIBUTION WIDTH 16.6 % (11.5-14.5)
[2017-11-05] MEDS: DONEPEZIL HCL 10 MG TABLET PO SCH (19:30)
[2017-11-05] MEDS: MIRTAZAPINE 7.5 MG TABLET. PO SCH (19:31)
[2017-11-05] MEDS: traZODone 50 MG TABLET. PO SCH (19:31)
--- NOTE | 2017-11-05 20:47 | PDOC ---
Exam Note: [place] Note: Please also refer to the separate dictated note~for this date of service dictated separately.~Patient seen individually. Discussed the patient with Nursing staff reviewed the chart.~Reviewed interim history and current functioning. Reviewed vital signs,~Labs/ Radiology~and current medications noted below. Continue current treatment with the changes noted in the dictated addendum note Assessment: Vital Signs: Vital Signs Date Time Temp Pulse Resp B/P (MAP) Pulse Ox O2 Delivery O2 Flow Rate FiO2 11/05/17 15:29 96.9 61 20 105/76 (86) 97 11/04/17 06:33 Room Air I&O Intake and Output 11/05/17 07:00 Intake Total 1440 ml Balance 1440 ml Intake Oral 1440 ml # Voids 1 # Bowel Movements 1 Labs: Laboratory Tests Test 11/05/17 09:28 11/05/17 16:05 Sodium Level 140 mmol/L (136-145) Potassium Level 3.9 mmol/L (3.5-5.1) Chloride Level 103 mmol/L (98-107) Carbon Dioxide Level 29 mmol/L (21-32) Anion Gap 8 (6-14) Blood Urea Nitrogen 23 mg/dL (8-26) Creatinine 1.2 mg/dL (0.7-1.3) Estimated GFR (Cockcroft-Gault) 59.2 BUN/Creatinine Ratio 19 (6-20) Glucose Level 118 mg/dL (70-99) H Calcium Level 9.4 mg/dL (8.5-10.1) Magnesium Level 2.0 mg/dL (1.8-2.4) Total Bilirubin 0.2 mg/dL (0.2-1.0) Aspartate Amino Transferase (AST) 26 U/L (15-37) Alanine Aminotransferase (ALT) 26 U/L (16-63) Alkaline Phosphatase 77 U/L (46-116) Total Protein 6.7 g/dL (6.4-8.2) Albumin 3.1 g/dL (3.4-5.0) L Albumin/Globulin Ratio 0.9 (1.0-1.7) L White Blood Count 6.0 x10^3/uL (4.0-11.0) Red Blood Count 5.21 x10^6/uL (4.30-5.70) Hemoglobin 15.1 g/dL (13.0-17.5) Hematocrit 46.0 % (39.0-53.0) Mean Corpuscular Volume 88 fL (79-100) Mean Corpuscular Hemoglobin 29 pg (25-35) Mean Corpuscular Hemoglobin Concent 33 g/dL (31-37) Red Cell Distribution Width 16.6 % (11.5-14.5) H Platelet Count 228 x10^3/uL (140-400) Neutrophils (%) (Auto) 62 % (31-73) Lymphocytes (%) (Auto) 28 % (24-48) Monocytes (%) (Auto) 7 % (0-9) Eosinophils (%) (Auto) 2 % (0-3) Basophils (%) (Auto) 1 % (0-3) Neutrophils # (Auto) 3.7 x10^3uL (1.8-7.7) Lymphocytes # (Auto) 1.7 x10^3/uL (1.0-4.8) Monocytes # (Auto) 0.4 x10^3/uL (0.0-1.1) Eosinophils # (Auto) 0.1 x10^3/uL (0.0-0.7) Basophils # (Auto) 0.0 x10^3/uL (0.0-0.2) Current Medications: Meds: Current Medications Acetaminophen (Tylenol) 650 mg PRN Q6HRS PRN PO PAIN / TEMP; Start 10/22/17 at 18:00 Multi-Ingredient Ointment (Analgesic [place]) 1 leticia PRN QID PRN TP MUSCLE PAIN; Start 10/22/17 at 18:00 Al Hydroxide/Mg Hydroxide (Mylanta Plus Xs) 15 ml PRN AFTMEALHC PRN PO DYSPEPSIA; Start 10/22/17 at 18:00 Magnesium Hydroxide (Milk Of Magnesia) 2,400 mg PRN QHS PRN PO CONSTIPATION; Start 10/22/17 at 18:00 Amlodipine Besylate (Norvasc) 5 mg DAILY PO Last administered on 11/05/17at 08: 00; Start 10/23/17 at 09:00 Docusate Sodium (Colace) 100 mg PRN BID PRN PO CONSTIPATION; Start 10/22/17 at 18:30 Donepezil HCl (Aricept) 5 mg QHS PO Last administered on 10/22/17 20:20; Start 10/22/17 at 21:00; Stop 10/23/17 at 18:04; Status DC Lisinopril (Prinivil) 20 mg DAILY PO Last administered on 11/05/17 07:59; Start 10/23/17 at 09:00 Nicotine (Nicoderm Cq 21mg) 1 patch DAILY TD Last administered on 11/05/17 07: 59; Start 10/23/17 at 09:00 Olanzapine (ZyPREXA) 2.5 mg PRN Q2HR PRN PO ANXIETY / AGITATION Last administered on 10/23/17 22:55; Start 10/22/17 at 18:30 Artificial Tears (Artificial Tears) 1 drop PRN BID PRN OD DRY EYE; Start at 18:30 Cyanocobalamin (Vitamin B-12) 1,000 mcg DAILY PO Last administered on 08:00; Start 10/23/17 at 09:00 Donepezil HCl (Aricept) 10 mg QHS PO Last administered on 11/05/17 19:30; Start 10/23/17 at 21:00 Sertraline HCl (Zoloft) 25 mg DAILY PO Last administered on 10/24/17 08:22; Start 10/24/17 at 09:00; Stop 10/24/17 at 18:28; Status DC Sertraline HCl (Zoloft) 50 mg DAILY PO Last administered on 10/26/17 09:28; Start 10/25/17 at 09:00; Stop 10/26/17 at 16:27; Status DC Sertraline HCl (Zoloft) 50 mg DAILY PO Last administered on 11/05/17 08:00; Start 10/27/17 at 09:00 Vitamin D (Vitamin D3) 50,000 unit WEEKLY PO Last administered on 11/02/17 08: 00; Start 10/26/17 at 18:00 Trazodone HCl (Desyrel) 50 mg QHS PO Last administered on 11/05/17 19:31; Start 10/28/17 at 21:00 Mirtazapine (Remeron) 7.5 mg QHS PO Last administered on 11/05/17 19:31; Start 11/03/17 at 21:00 Active Scripts Active Reported Zyprexa (Olanzapine) 2.5 Mg Tablet 2.5 Mg PO PRN Q2HR PRN Liquitears (Polyvinyl Alcohol) 15 Ml Drops 1 Drop OD Colace (Docusate Sodium) 100 Mg Capsule 100 Mg PO PRN BID PRN NICODERM CQ 21mg (Nicotine) 1 Each Patch.td24 1 Patch TD DAILY Lisinopril 20 Mg Tablet 20 Mg PO DAILY Aricept (Donepezil Hcl) 5 Mg Tablet 5 Mg PO QHS B-12 (Cyanocobalamin (Vitamin B-12)) 1,000 Mcg Tablet.er 1,000 Mcg PO DAILY Norvasc (Amlodipine Besylate) 5 Mg Tablet 5 Mg PO DAILY I have reviewed the current psychotropics carefully including drug interactions. Risk benefit ratio favors no change other than as noted in my dictated progress note. Diagnosis: Problems: (1) Anxiety disorder (2) Impulse control disorder (3) Dementia, vascular, with depression (4) Dementia, vascular, with delusions (5) Dementia in Alzheimer's disease with depression (6) Dementia in Alzheimer's disease with delusions ARMANDO CRAIG MD Nov 05, 2017 20:46
[2017-11-06 06:31] VITALS: BP 123/75
[2017-11-06] MEDS: NICOTINE 21MG PATCH. TD SCH (07:59)
[2017-11-06] MEDS: CYANOCOBALAMIN (VITAMIN B-12) 1,000 MCG TABLET. PO SCH (07:59)
[2017-11-06] MEDS: amLODIPine BESYLATE 5 MG TABLET PO SCH (07:59)
[2017-11-06] MEDS: SERTRALINE 50 MG TABLET. PO SCH (07:59)
[2017-11-06] MEDS: LISINOPRIL 20 MG TABLET PO SCH (07:59)
[2017-11-06 16:09] VITALS: BP 105/64
[2017-11-06] MEDS: MIRTAZAPINE 7.5 MG TABLET. PO SCH (20:22)
[2017-11-06] MEDS: traZODone 50 MG TABLET. PO SCH (20:22)
[2017-11-06] MEDS: DONEPEZIL HCL 10 MG TABLET PO SCH (20:22)
--- NOTE | 2017-11-06 20:42 | PDOC ---
Exam Note: [place] Note: Please also refer to the separate dictated note~for this date of service dictated separately.~Patient seen individually. Discussed the patient with Nursing staff reviewed the chart.~Reviewed interim history and current functioning. Reviewed vital signs,~Labs/ Radiology~and current medications noted below. Continue current treatment with the changes noted in the dictated addendum note Assessment: Vital Signs: Vital Signs Date Time Temp Pulse Resp B/P (MAP) Pulse Ox O2 Delivery O2 Flow Rate FiO2 11/06/17 16:09 97.3 57 18 105/64 (78) 97 11/04/17 06:33 Room Air I&O Intake and Output 11/06/17 07:00 Intake Total 1080 ml Balance 1080 ml Intake Oral 1080 ml # Voids 1 Current Medications: Meds: Current Medications Acetaminophen (Tylenol) 650 mg PRN Q6HRS PRN PO PAIN / TEMP; Start 10/22/17 at 18:00 Multi-Ingredient Ointment (Analgesic [place]) 1 leticia PRN QID PRN TP MUSCLE PAIN; Start 10/22/17 at 18:00 Al Hydroxide/Mg Hydroxide (Mylanta Plus Xs) 15 ml PRN AFTMEALHC PRN PO DYSPEPSIA; Start 10/22/17 at 18:00 Magnesium Hydroxide (Milk Of Magnesia) 2,400 mg PRN QHS PRN PO CONSTIPATION; Start 10/22/17 at 18:00 Amlodipine Besylate (Norvasc) 5 mg DAILY PO Last administered on 11/06/17at 07: 59; Start 10/23/17 at 09:00 Docusate Sodium (Colace) 100 mg PRN BID PRN PO CONSTIPATION; Start 10/22/17 at 18:30 Donepezil HCl (Aricept) 5 mg QHS PO Last administered on 10/22/17at 20:20; Start 10/22/17 at 21:00; Stop 10/23/17 at 18:04; Status DC Lisinopril (Prinivil) 20 mg DAILY PO Last administered on 11/06/17at 07:59; Start 10/23/17 at 09:00 Nicotine (Nicoderm Cq 21mg) 1 patch DAILY TD Last administered on 11/06/17at 07: 59; Start 10/23/17 at 09:00 Olanzapine (ZyPREXA) 2.5 mg PRN Q2HR PRN PO ANXIETY / AGITATION Last administered on 10/23/17at 22:55; Start 10/22/17 at 18:30 Artificial Tears (Artificial Tears) 1 drop PRN BID PRN OD DRY EYE; Start at 18:30 Cyanocobalamin (Vitamin B-12) 1,000 mcg DAILY PO Last administered on 07:59; Start 10/23/17 at 09:00 Donepezil HCl (Aricept) 10 mg QHS PO Last administered on 11/06/17 20:22; Start 10/23/17 at 21:00 Sertraline HCl (Zoloft) 25 mg DAILY PO Last administered on 10/24/17 08:22; Start 10/24/17 at 09:00; Stop 10/24/17 at 18:28; Status DC Sertraline HCl (Zoloft) 50 mg DAILY PO Last administered on 10/26/17 09:28; Start 10/25/17 at 09:00; Stop 10/26/17 at 16:27; Status DC Sertraline HCl (Zoloft) 50 mg DAILY PO Last administered on 11/06/17 07:59; Start 10/27/17 at 09:00 Vitamin D (Vitamin D3) 50,000 unit WEEKLY PO Last administered on 11/02/17 08: 00; Start 10/26/17 at 18:00 Trazodone HCl (Desyrel) 50 mg QHS PO Last administered on 11/06/17 20:22; Start 10/28/17 at 21:00 Mirtazapine (Remeron) 7.5 mg QHS PO Last administered on 11/06/17 20:22; Start 11/03/17 at 21:00 Active Scripts Active Reported Zyprexa (Olanzapine) 2.5 Mg Tablet 2.5 Mg PO PRN Q2HR PRN Liquitears (Polyvinyl Alcohol) 15 Ml Drops 1 Drop OD Colace (Docusate Sodium) 100 Mg Capsule 100 Mg PO PRN BID PRN NICODERM CQ 21mg (Nicotine) 1 Each Patch.td24 1 Patch TD DAILY Lisinopril 20 Mg Tablet 20 Mg PO DAILY Aricept (Donepezil Hcl) 5 Mg Tablet 5 Mg PO QHS B-12 (Cyanocobalamin (Vitamin B-12)) 1,000 Mcg Tablet.er 1,000 Mcg PO DAILY Norvasc (Amlodipine Besylate) 5 Mg Tablet 5 Mg PO DAILY I have reviewed the current psychotropics carefully including drug interactions. Risk benefit ratio favors no change other than as noted in my dictated progress note. Diagnosis: Problems: (1) Anxiety disorder (2) Impulse control disorder (3) Dementia, vascular, with depression (4) Dementia, vascular, with delusions (5) Dementia in Alzheimer's disease with depression (6) Dementia in Alzheimer's disease with delusions ARMANDO CRAIG MD Nov 06, 2017 20:42
--- NOTE | 2017-11-06 21:52 | PN ---
DATE: 11/04/2017 PSYCHIATRIC PROGRESS NOTE This late entry date of service 11/04/2017 covers elements not covered in my initial note of 11/04/2017. SUBJECTIVE: Met with the patient in evening of 11/04/2017. The patient slept reasonably well, remains confused, otherwise pleasant. He gets a little agitated with blood draws and other interventions, but for the most part other than this, he is pleasant. REVIEW OF SYSTEMS: No CV, , pulmonary, eye, ENT system symptoms on review. Reliability is poor. MENTAL STATUS EXAM: Oriented to himself. Insight, judgment, recent, remote memory, attention, concentration, fund of knowledge is poor, consistent with his diagnoses. He was pleasant, verbal, smiling as I sat with him. IMPRESSION: Unchanged from initial note: Major neurocognitive disorder, Alzheimer, vascular with depression, delusion, behavioral disturbance. Rest unchanged. PLAN: Continue psychotropics mentioned in my initial note. We will consider increasing Zoloft in due course. MAN Clayton CRAIG MD DR: FARIBA/lucia JOB#: [id number] / [id number]
--- NOTE | 2017-11-07 03:08 | PN ---
DATE: 11/05/2017 This late entry 11/05/2017 covers elements not covered in my initial note 11/05/2017. SUBJECTIVE: The patient was staffed at a treatment team meeting with the entire team morning of 11/05/2017, seen individually evening of 11/05/2017. Social service staffs are diligently working at appropriate placement via Medicaid. The patient is quite demented, unable to get back home. He was agitated with the blood draw, took several staff members to help him through this, but rest of the day has been pleasant. REVIEW OF SYSTEMS: No CV, , pulmonary, eye, ENT system symptoms on review. Reliability poor. MENTAL STATUS EXAM: Oriented to himself. Insight, judgment, recent and remote memory, attention, concentration, fund of knowledge poor, consistent with his diagnosis, but otherwise very pleasant. LABORATORY DATA: Reviewed. IMPRESSION: Major neurocognitive disorder, Alzheimer, vascular with depression, delusion, behavioral disturbance. PLAN: Continue psychotropics mentioned in my initial note. ARMANDO CRAIG MD DR: FARIBA/lucia JOB#: [id number] / [id number]
[2017-11-07 06:23] VITALS: BP 106/68
[2017-11-07] MEDS: CYANOCOBALAMIN (VITAMIN B-12) 1,000 MCG TABLET. PO SCH (07:51)
[2017-11-07] MEDS: amLODIPine BESYLATE 5 MG TABLET PO SCH (07:51)
[2017-11-07] MEDS: LISINOPRIL 20 MG TABLET PO SCH (07:51)
[2017-11-07] MEDS: NICOTINE 21MG PATCH. TD SCH (07:51)
[2017-11-07] MEDS: SERTRALINE 50 MG TABLET. PO SCH (08:06)
[2017-11-07 16:22] VITALS: BP 113/66
[2017-11-07] MEDS: traZODone 50 MG TABLET. PO SCH (19:30)
[2017-11-07] MEDS: MIRTAZAPINE 7.5 MG TABLET. PO SCH (19:30)
[2017-11-07] MEDS: DONEPEZIL HCL 10 MG TABLET PO SCH (19:30)
--- NOTE | 2017-11-07 19:39 | PDOC ---
Exam Note: [place] Note: Please also refer to the separate dictated note~for this date of service dictated separately.~Patient seen individually. Discussed the patient with Nursing staff reviewed the chart.~Reviewed interim history and current functioning. Reviewed vital signs,~Labs/ Radiology~and current medications noted below. Continue current treatment with the changes noted in the dictated addendum note Assessment: Vital Signs: Vital Signs Date Time Temp Pulse Resp B/P (MAP) Pulse Ox O2 Delivery O2 Flow Rate FiO2 11/07/17 16:22 98.3 51 18 113/66 (82) 100 Room Air I&O Intake and Output 11/07/17 07:00 Intake Total 1200 ml Balance 1200 ml Intake Oral 1200 ml # Voids 1 Current Medications: Meds: Current Medications Acetaminophen (Tylenol) 650 mg PRN Q6HRS PRN PO PAIN / TEMP; Start 10/22/17 at 18:00 Multi-Ingredient Ointment (Analgesic [place]) 1 leticia PRN QID PRN TP MUSCLE PAIN; Start 10/22/17 at 18:00 Al Hydroxide/Mg Hydroxide (Mylanta Plus Xs) 15 ml PRN AFTMEALHC PRN PO DYSPEPSIA; Start 10/22/17 at 18:00 Magnesium Hydroxide (Milk Of Magnesia) 2,400 mg PRN QHS PRN PO CONSTIPATION; Start 10/22/17 at 18:00 Amlodipine Besylate (Norvasc) 5 mg DAILY PO Last administered on 11/07/17at 07: 51; Start 10/23/17 at 09:00 Docusate Sodium (Colace) 100 mg PRN BID PRN PO CONSTIPATION; Start 10/22/17 at 18:30 Donepezil HCl (Aricept) 5 mg QHS PO Last administered on 10/22/17at 20:20; Start 10/22/17 at 21:00; Stop 10/23/17 at 18:04; Status DC Lisinopril (Prinivil) 20 mg DAILY PO Last administered on 11/07/17at 07:51; Start 10/23/17 at 09:00 Nicotine (Nicoderm Cq 21mg) 1 patch DAILY TD Last administered on 11/07/17at 07: 51; Start 10/23/17 at 09:00 Olanzapine (ZyPREXA) 2.5 mg PRN Q2HR PRN PO ANXIETY / AGITATION Last administered on 10/23/17 22:55; Start 10/22/17 at 18:30 Artificial Tears (Artificial Tears) 1 drop PRN BID PRN OD DRY EYE; Start at 18:30 Cyanocobalamin (Vitamin B-12) 1,000 mcg DAILY PO Last administered on 07:51; Start 10/23/17 at 09:00 Donepezil HCl (Aricept) 10 mg QHS PO Last administered on 11/07/17 19:30; Start 10/23/17 at 21:00 Sertraline HCl (Zoloft) 25 mg DAILY PO Last administered on 10/24/17 08:22; Start 10/24/17 at 09:00; Stop 10/24/17 at 18:28; Status DC Sertraline HCl (Zoloft) 50 mg DAILY PO Last administered on 10/26/17 09:28; Start 10/25/17 at 09:00; Stop 10/26/17 at 16:27; Status DC Sertraline HCl (Zoloft) 50 mg DAILY PO Last administered on 11/07/17 08:06; Start 10/27/17 at 09:00 Vitamin D (Vitamin D3) 50,000 unit WEEKLY PO Last administered on 11/02/17 08: 00; Start 10/26/17 at 18:00 Trazodone HCl (Desyrel) 50 mg QHS PO Last administered on 11/07/17 19:30; Start 10/28/17 at 21:00 Mirtazapine (Remeron) 7.5 mg QHS PO Last administered on 11/07/17 19:30; Start 11/03/17 at 21:00 Active Scripts Active Reported Zyprexa (Olanzapine) 2.5 Mg Tablet 2.5 Mg PO PRN Q2HR PRN Liquitears (Polyvinyl Alcohol) 15 Ml Drops 1 Drop OD Colace (Docusate Sodium) 100 Mg Capsule 100 Mg PO PRN BID PRN NICODERM CQ 21mg (Nicotine) 1 Each Patch.td24 1 Patch TD DAILY Lisinopril 20 Mg Tablet 20 Mg PO DAILY Aricept (Donepezil Hcl) 5 Mg Tablet 5 Mg PO QHS B-12 (Cyanocobalamin (Vitamin B-12)) 1,000 Mcg Tablet.er 1,000 Mcg PO DAILY Norvasc (Amlodipine Besylate) 5 Mg Tablet 5 Mg PO DAILY I have reviewed the current psychotropics carefully including drug interactions. Risk benefit ratio favors no change other than as noted in my dictated progress note. Diagnosis: Problems: (1) Anxiety disorder (2) Impulse control disorder (3) Dementia, vascular, with depression (4) Dementia, vascular, with delusions (5) Dementia in Alzheimer's disease with depression (6) Dementia in Alzheimer's disease with delusions ARMANDO CRAIG MD Nov 07, 2017 19:39
[2017-11-08 06:03] VITALS: BP 103/63
[2017-11-08] MEDS: amLODIPine BESYLATE 5 MG TABLET PO SCH (07:32)
[2017-11-08] MEDS: NICOTINE 21MG PATCH. TD SCH (07:32)
[2017-11-08] MEDS: LISINOPRIL 20 MG TABLET PO SCH (07:32)
[2017-11-08] MEDS: CYANOCOBALAMIN (VITAMIN B-12) 1,000 MCG TABLET. PO SCH (07:32)
[2017-11-08] MEDS: SERTRALINE 50 MG TABLET. PO SCH (07:33)
[2017-11-08 16:40] VITALS: BP 91/57
--- NOTE | 2017-11-08 19:14 | PN ---
DATE: 11/06/2017 This is a late entry of 11/06/2017, and covers the elements not covered in my initial note of 11/06/2017. SUBJECTIVE: I met with the patient in the evening of 11/06/2017. Overall, the patient remains confused, gets restless, anxious at times; otherwise, oblivious to his surroundings. REVIEW OF SYSTEMS: No CV, , pulmonary, eye, ENT system symptoms on review. Reliability poor. MENTAL STATUS EXAM: Oriented to himself. Insight, judgment, recent and remote memory, attention, concentration, fund of knowledge poor, consistent with his diagnosis. LABORATORY DATA: Reviewed. IMPRESSION: Major neurocognitive disorder, Alzheimer, vascular with delusion, depression, behavioral disturbance. Rest unchanged. PLAN: Continue psychotropics mentioned in my initial note. MAN Clayton CRAIG MD DR: FARIBA/lucia JOB#: [id number] / [id number]
[2017-11-08] MEDS: traZODone 50 MG TABLET. PO SCH (19:23)
[2017-11-08] MEDS: DONEPEZIL HCL 10 MG TABLET PO SCH (19:23)
[2017-11-08] MEDS: MIRTAZAPINE 7.5 MG TABLET. PO SCH (19:23)
--- NOTE | 2017-11-08 22:05 | PDOC ---
Exam Note: [place] Note: Please also refer to the separate dictated note~for this date of service dictated separately.~Patient seen individually. Discussed the patient with Nursing staff reviewed the chart.~Reviewed interim history and current functioning. Reviewed vital signs,~Labs/ Radiology~and current medications noted below. Continue current treatment with the changes noted in the dictated addendum note Assessment: Vital Signs: Vital Signs Date Time Temp Pulse Resp B/P (MAP) Pulse Ox O2 Delivery O2 Flow Rate FiO2 11/08/17 16:40 98.0 66 18 91/57 (68) 99 11/08/17 06:03 Room Air I&O Intake and Output 11/08/17 07:00 Intake Total 1320 ml Balance 1320 ml Intake Oral 1320 ml # Voids 1 Current Medications: Meds: Current Medications Acetaminophen (Tylenol) 650 mg PRN Q6HRS PRN PO PAIN / TEMP; Start 10/22/17 at 18:00 Multi-Ingredient Ointment (Analgesic [place]) 1 leticia PRN QID PRN TP MUSCLE PAIN; Start 10/22/17 at 18:00 Al Hydroxide/Mg Hydroxide (Mylanta Plus Xs) 15 ml PRN AFTMEALHC PRN PO DYSPEPSIA; Start 10/22/17 at 18:00 Magnesium Hydroxide (Milk Of Magnesia) 2,400 mg PRN QHS PRN PO CONSTIPATION; Start 10/22/17 at 18:00 Amlodipine Besylate (Norvasc) 5 mg DAILY PO Last administered on 11/08/17at 07: 32; Start 10/23/17 at 09:00 Docusate Sodium (Colace) 100 mg PRN BID PRN PO CONSTIPATION; Start 10/22/17 at 18:30 Donepezil HCl (Aricept) 5 mg QHS PO Last administered on 10/22/17at 20:20; Start 10/22/17 at 21:00; Stop 10/23/17 at 18:04; Status DC Lisinopril (Prinivil) 20 mg DAILY PO Last administered on 11/07/17at 07:51; Start 10/23/17 at 09:00 Nicotine (Nicoderm Cq 21mg) 1 patch DAILY TD Last administered on 11/08/17at 07: 32; Start 10/23/17 at 09:00 Olanzapine (ZyPREXA) 2.5 mg PRN Q2HR PRN PO ANXIETY / AGITATION Last administered on 10/23/17at 22:55; Start 10/22/17 at 18:30 Artificial Tears (Artificial Tears) 1 drop PRN BID PRN OD DRY EYE; Start at 18:30 Cyanocobalamin (Vitamin B-12) 1,000 mcg DAILY PO Last administered on 07:32; Start 10/23/17 at 09:00 Donepezil HCl (Aricept) 10 mg QHS PO Last administered on 11/08/17 19:23; Start 10/23/17 at 21:00 Sertraline HCl (Zoloft) 25 mg DAILY PO Last administered on 10/24/17 08:22; Start 10/24/17 at 09:00; Stop 10/24/17 at 18:28; Status DC Sertraline HCl (Zoloft) 50 mg DAILY PO Last administered on 10/26/17 09:28; Start 10/25/17 at 09:00; Stop 10/26/17 at 16:27; Status DC Sertraline HCl (Zoloft) 50 mg DAILY PO Last administered on 11/08/17 07:33; Start 10/27/17 at 09:00 Vitamin D (Vitamin D3) 50,000 unit WEEKLY PO Last administered on 11/02/17 08: 00; Start 10/26/17 at 18:00 Trazodone HCl (Desyrel) 50 mg QHS PO Last administered on 11/08/17 19:23; Start 10/28/17 at 21:00 Mirtazapine (Remeron) 7.5 mg QHS PO Last administered on 11/08/17 19:23; Start 11/03/17 at 21:00 Active Scripts Active Reported Zyprexa (Olanzapine) 2.5 Mg Tablet 2.5 Mg PO PRN Q2HR PRN Liquitears (Polyvinyl Alcohol) 15 Ml Drops 1 Drop OD Colace (Docusate Sodium) 100 Mg Capsule 100 Mg PO PRN BID PRN NICODERM CQ 21mg (Nicotine) 1 Each Patch.td24 1 Patch TD DAILY Lisinopril 20 Mg Tablet 20 Mg PO DAILY Aricept (Donepezil Hcl) 5 Mg Tablet 5 Mg PO QHS B-12 (Cyanocobalamin (Vitamin B-12)) 1,000 Mcg Tablet.er 1,000 Mcg PO DAILY Norvasc (Amlodipine Besylate) 5 Mg Tablet 5 Mg PO DAILY I have reviewed the current psychotropics carefully including drug interactions. Risk benefit ratio favors no change other than as noted in my dictated progress note. Diagnosis: Problems: (1) Anxiety disorder (2) Impulse control disorder (3) Dementia, vascular, with depression (4) Dementia, vascular, with delusions (5) Dementia in Alzheimer's disease with depression (6) Dementia in Alzheimer's disease with delusions ARMANDO CRAIG MD Nov 08, 2017 22:05
[2017-11-08] MEDS ORDERED: ACET325T9 PO (23:18)
[2017-11-08] MEDS ORDERED: CHOL500050 PO (23:19)
[2017-11-08] MEDS ORDERED: MAG30ORA2 PO (23:20)
[2017-11-08] MEDS ORDERED: METH29OI TP (23:21)
[2017-11-08] MEDS ORDERED: MAGN400O7 PO (23:21)
[2017-11-08] MEDS ORDERED: MIRT7.5T8 PO (23:22)
[2017-11-08] MEDS ORDERED: SERT50TA PO (23:22)
[2017-11-08] MEDS ORDERED: TRAZ50TA15 PO ×2 (23:23)
[2017-11-09 06:06] VITALS: BP 128/82
[2017-11-09 08:13] VITALS: BP 128/82
[2017-11-09] MEDS: amLODIPine BESYLATE 5 MG TABLET PO SCH (08:13)
[2017-11-09] MEDS: NICOTINE 21MG PATCH. TD SCH (08:13)
[2017-11-09] MEDS: LISINOPRIL 20 MG TABLET PO SCH (08:13)
[2017-11-09] MEDS: CYANOCOBALAMIN (VITAMIN B-12) 1,000 MCG TABLET. PO SCH (08:14)
[2017-11-09] MEDS: SERTRALINE 50 MG TABLET. PO SCH (08:14)
[2017-11-09] MEDS: CHOLECALCIFEROL (VITAMIN D3) 50,000 UNIT CAPSULE PO SCH (08:14)
--- NOTE | 2017-11-09 18:40 | PDOC ---
Exam Note: [place] Note: Please also refer to the separate dictated note~for this date of service dictated separately.~Patient seen individually. Discussed the patient with Nursing staff reviewed the chart.~Reviewed interim history and current functioning. Reviewed vital signs,~Labs/ Radiology~and current medications noted below. Continue current treatment with the changes noted in the dictated addendum note Assessment: Vital Signs: Vital Signs Date Time Temp Pulse Resp B/P (MAP) Pulse Ox O2 Delivery O2 Flow Rate FiO2 11/09/17 08:13 60 128/82 11/09/17 06:06 97.8 22 95 11/08/17 06:03 Room Air I&O Intake and Output 11/09/17 07:00 Intake Total 1320 ml Balance 1320 ml Intake Oral 1320 ml # Voids 1 Current Medications: Meds: Current Medications Acetaminophen (Tylenol) 650 mg PRN Q6HRS PRN PO PAIN / TEMP; Start 10/22/17 at 18:00; Stop 11/09/17 at 15:15; Status DC Multi-Ingredient Ointment (Analgesic [place]) 1 sherly PRN QID PRN TP MUSCLE PAIN; Start 10/22/17 at 18:00; Stop 11/09/17 at 15:15; Status DC Al Hydroxide/Mg Hydroxide (Mylanta Plus Xs) 15 ml PRN AFTMEALHC PRN PO DYSPEPSIA; Start 10/22/17 at 18:00; Stop 11/09/17 at 15:15; Status DC Magnesium Hydroxide (Milk Of Magnesia) 2,400 mg PRN QHS PRN PO CONSTIPATION; Start 10/22/17 at 18:00; Stop 11/09/17 at 15:15; Status DC Amlodipine Besylate (Norvasc) 5 mg DAILY PO Last administered on 11/09/17at 08: 13; Start 10/23/17 at 09:00; Stop 11/09/17 at 15:15; Status DC Docusate Sodium (Colace) 100 mg PRN BID PRN PO CONSTIPATION; Start 10/22/17 at 18:30; Stop 11/09/17 at 15:15; Status DC Donepezil HCl (Aricept) 5 mg QHS PO Last administered on 10/22/17at 20:20; Start 10/22/17 at 21:00; Stop 10/23/17 at 18:04; Status DC Lisinopril (Prinivil) 20 mg DAILY PO Last administered on 11/09/17at 08:13; Start 10/23/17 at 09:00; Stop 11/09/17 at 15:15; Status DC Nicotine (Nicoderm Cq 21mg) 1 patch DAILY TD Last administered on 11/09/17at 08: 13; Start 10/23/17 at 09:00; Stop 11/09/17 at 15:15; Status DC Olanzapine (ZyPREXA) 2.5 mg PRN Q2HR PRN PO ANXIETY / AGITATION Last administered on 10/23/17at 22:55; Start 10/22/17 at 18:30; Stop 11/09/17 at 15:15 ; Status DC Artificial Tears (Artificial Tears) 1 drop PRN BID PRN OD DRY EYE; Start at 18:30; Stop 11/09/17 at 15:15; Status DC Cyanocobalamin (Vitamin B-12) 1,000 mcg DAILY PO Last administered on at 08:14; Start 10/23/17 at 09:00; Stop 11/09/17 at 15:15; Status DC Donepezil HCl (Aricept) 10 mg QHS PO Last administered on 11/08/17at 19:23; Start 10/23/17 at 21:00; Stop 11/09/17 at 15:15; Status DC Sertraline HCl (Zoloft) 25 mg DAILY PO Last administered on 10/24/17at 08:22; Start 10/24/17 at 09:00; Stop 10/24/17 at 18:28; Status DC Sertraline HCl (Zoloft) 50 mg DAILY PO Last administered on 10/26/17at 09:28; Start 10/25/17 at 09:00; Stop 10/26/17 at 16:27; Status DC Sertraline HCl (Zoloft) 50 mg DAILY PO Last administered on 11/09/17at 08:14; Start 10/27/17 at 09:00; Stop 11/09/17 at 15:15; Status DC Vitamin D (Vitamin D3) 50,000 unit WEEKLY PO Last administered on 11/09/17at 08: 14; Start 10/26/17 at 18:00; Stop 11/09/17 at 15:15; Status DC Trazodone HCl (Desyrel) 50 mg QHS PO Last administered on 11/08/17at 19:23; Start 10/28/17 at 21:00; Stop 11/09/17 at 15:15; Status DC Mirtazapine (Remeron) 7.5 mg QHS PO Last administered on 11/08/17at 19:23; Start 11/03/17 at 21:00; Stop 11/09/17 at 15:15; Status DC Active Scripts Active Reported Trazodone Hcl 50 Mg Tablet 50 Mg PO QHS Zoloft (Sertraline Hcl) 50 Mg Tablet 50 Mg PO DAILY Mirtazapine 7.5 Mg Tablet 7.5 Mg PO QHS Analgesic [place] (Methyl Salicylate/Menthol) 28 Gm Oint...g. 1 Sherly TP PRN QID PRN Milk Of Magnesia (Magnesium Hydroxide) 400 Mg/5 Ml Oral.susp 2,400 Mg PO PRN QHS PRN Mag-Al Plus Xs Suspension (Mag Hydrox/Al Hydrox/Simeth) 30 Ml Oral.susp 15 Ml PO PRN AFTMEALHC PRN Vitamin D3 (Cholecalciferol (Vitamin D3)) 50,000 Unit Capsule 50,000 Unit PO WEEKLY Tylenol (Acetaminophen) 325 Mg Tablet 650 Mg PO PRN Q6HRS PRN Zyprexa (Olanzapine) 2.5 Mg Tablet 2.5 Mg PO PRN Q2HR PRN Liquitears (Polyvinyl Alcohol) 15 Ml Drops 1 Drop OU PRN BID PRN Colace (Docusate Sodium) 100 Mg Capsule 100 Mg PO PRN BID PRN NICODERM CQ 21mg (Nicotine) 1 Each Patch.td24 1 Patch TD DAILY Lisinopril 20 Mg Tablet 20 Mg PO DAILY Aricept (Donepezil Hcl) 5 Mg Tablet 10 Mg PO QHS B-12 (Cyanocobalamin (Vitamin B-12)) 1,000 Mcg Tablet.er 1,000 Mcg PO DAILY Norvasc (Amlodipine Besylate) 5 Mg Tablet 5 Mg PO DAILY I have reviewed the current psychotropics carefully including drug interactions. Risk benefit ratio favors no change other than as noted in my dictated progress note. Diagnosis: Problems: (1) Dementia in Alzheimer's disease with delusions (2) Dementia in Alzheimer's disease with depression (3) Dementia, vascular, with delusions (4) Dementia, vascular, with depression (5) Impulse control disorder (6) Anxiety disorder ARMANDO CRAIG MD Nov 09, 2017 18:40
--- NOTE | 2017-11-09 19:05 | PN ---
DATE: 11/07/2017 PSYCHIATRIC PROGRESS NOTE This late entry 11/07/2017 covers elements, not covered in my initial note of 11/07/2017. I met with the patient in the evening of 11/07/2017. Overall, the patient remains confused, oblivious about his surroundings, eating out of someone else's tray, as I met with him. I did point this out to the nursing staff. REVIEW OF SYSTEMS: No CV, , pulmonary, eye, ENT system symptoms on review. Reliability poor. MENTAL STATUS EXAM: Oriented to himself. Insight, judgment, recent and remote memory, attention, concentration, fund of knowledge poor, consistent with his diagnosis mentioned in my initial note. IMPRESSION: Major neurocognitive disorder, Alzheimer, vascular with delusion, depression, behavioral disturbance. Rest unchanged. PLAN: Continue psychotropics mentioned in my initial note. MAN Clayton CRAIG MD DR: FARIBA/lucia JOB#: [id number] / [id number]
--- NOTE | 2017-11-10 03:21 | PN ---
DATE: 11/07/2017 PSYCHIATRIC PROGRESS NOTE This is a late entry for 11/07/2017, covers elements not covered in my initial note of 11/07/2017. SUBJECTIVE: I met with the patient the evening of 11/07/2017. I am redictating this note since my prior is not to be found in the system. The patient is cooperative, compliant, was eating someone's tray and I pointed this out t o the nursing staff. REVIEW OF SYSTEMS: No CV, , pulmonary, eye, ENT system symptoms on review. Reliability poor. MENTAL STATUS EXAM: Oriented to himself. Insight, judgment, recent and remote memory, attention, concentration, fund of knowledge poor, consistent with his diagnosis mentioned in my initial note. IMPRESSION: Major neurocognitive disorder, Alzheimer, vascular with depression, delusion, behavioral disturbance. Rest unchanged. PLAN: Continue psychotropics mentioned in my initial note. Adjust further as clinically indicated. MAN Clayton CRAIG MD DR: FARIBA/lucia JOB#: [id number] / [id number]
--- NOTE | 2017-11-10 03:52 | PN ---
DATE: 11/08/2017 PSYCHIATRIC PROGESS NOTE This late entry 11/08/2017 covers elements not covered in my initial note 11/08/2017. SUBJECTIVE: I met with the patient in the evening of 11/08/2017. Overall, the patient remains confused, but not aggressive, no overt psychotic symptoms noted. REVIEW OF SYSTEMS: No CV, , pulmonary, eye, ENT system symptoms on review. Reliability poor. MENTAL STATUS EXAM: Oriented to himself. Insight, judgment, recent and remote memory, attention, concentration, fund of knowledge poor, consistent with his diagnosis mentioned in my initial note. IMPRESSION: Major neurocognitive disorder, Alzheimer, vascular with delusion, depression, behavioral disturbance. PLAN: Continue current psychotropics mentioned in my initial note. MAN Clayton CRAIG MD DR: FARIBA/lucia JOB#: [id number] / [id number]
--- NOTE | 2017-11-10 19:59 | DS ---
DATE OF DISCHARGE: 11/09/2017 DISCHARGE SUMMARY/PSYCHIATRIC PROGRESS NOTE This is a late entry, date of service 11/09/2017, covers elements not covered in my initial note of 11/09/2017. REASON FOR ADMISSION: Please refer to the admission history for details. Briefly, the reason for admission was the patient is a 72-year-old -French male, admitted from home via the Emergency Room at [facility] where he presented on account of increased confusion, agitation, aggression, being physically and verbally abusive. He was disorganized, cursing. He was unable to take care of himself, house was dirty. He was living with a homeless lady, was noted to be positive for cocaine, even though he never used it, but there was a question whether his partner had been using cocaine. He was deemed a potential danger to himself, depressed, psychotic, confused, admitted for inpatient psychiatric stabilization. SIGNIFICANT FINDINGS AND CLINICAL COURSE: Following admission, the patient was seen daily individually by myself, followed medically per Dr. Avalos/Dr. Yi. He was quite unkempt and staff shaved him and after he had a shower, he looked much more presentable and appropriate, certainly very confused, but pleasant. He was still depressed, started on Zoloft, which was gradually increased to 50 mg a day. He is also on Aricept 10 mg a day, Zyprexa p.r.n., Remeron 7.5 mg p.o. at bedtime for insomnia, anxiety, and trazodone 50 mg at bedtime, may repeat x 1. Gradually mute, mood appeared to improve. He remained confused. No psychotic symptoms. No suicidal or homicidal ideation at discharge. CONDITION AT DISCHARGE: Improved. REVIEW OF SYSTEMS: Prior to discharge on 11/09/2017, no CV, , pulmonary, eye, ENT system symptoms on review. Reliability is poor. MENTAL STATUS EXAM: Oriented to himself. Insight, judgment, recent and remote memory, attention, concentration, fund of knowledge is poor, consistent with his diagnoses mentioned in my initial note. IMPRESSION: Major neurocognitive disorder, Alzheimer, vascular with depression, delusion, behavioral disturbance; anxiety disorder, unspecified; impulse control disorder, unspecified. Rest is unchanged. PLAN: Continue psychotropics mentioned in my initial note. DISCHARGE MEDICATIONS: As noted in the discharge summary. DISCHARGE INSTRUCTIONS: Outpatient psychiatric medical followup at the longterm. Time for discharge day management was greater than 30 minutes. ARMANDO CRAIG MD DR: FARIBA/lucia JOB#: [id number] / [id number]
--- NOTE | 2017-11-10 23:47 | DS ---
DATE OF DISCHARGE: 11/09/2017 NO DICTATION. ARMANDO CRAIG MD DR: Roseanne JOB#: [id number] / [id number]
--- NOTE | 2017-11-10 23:48 | DS ---
DATE OF DISCHARGE: 11/09/2017 NO DICTATION. ARMANDO CRAIG MD DR: Roseanne JOB#: [id number] / [id number]
== END 2017-11-09 15:14 | DRG 884 ==
LOC: GEROPSY 17:04
PROVIDERS: ADMIT Psychiatry & Neurology Psychiatry; ATTEND Psychiatry & Neurology Psychiatry
DX: F01.51 Vascular dementia, unspecified severity, with behavioral disturbance (principal); G30.9 Alzheimer's disease, unspecified; F02.81 Dementia in other diseases classified elsewhere, unspecified severity, with behavioral disturbance; F32.9 Major depressive disorder, single episode, unspecified; F41.9 Anxiety disorder, unspecified; F63.9 Impulse disorder, unspecified; F29 Unspecified psychosis not due to a substance or known physiological condition; G47.00 Insomnia, unspecified; I10 Essential (primary) hypertension; Z79.899 Other long term (current) drug therapy
CPT/HCPCS: 36415; 80053; 80061; 81001; 82306; 82607; 83036; 83540; 83550; 83735; 84436; 84443; 84480; 85025; 86593; 93005; 99406

== ENCOUNTER 2020-01-12 04:56 | Inpatient (IN) | payer OTHER ==
[~2020-01-12] VITALS: Ht 172.7 cm; Wt 81.1 kg
[~2020-01-12 04:56] MED LIST: ACET325T9 PO; AMLO5TAB4 PO; CHOL500050 PO; CYAN100031 PO; DOCU-109 PO; DONE5TAB56 PO; LISI-334 PO; MAG30ORA2 PO; MAGN400O7 PO; METH28OI2 TP; MIRT7.5T8 PO; NICO1PAT21 TD; OLAN2.5T3 PO; POLY15DR28 OU; SERT50TA PO; TRAZ-120 PO
--- NOTE | 2020-01-12 05:14 | PHYS DOC ---
Past History Past Medical History: COPD, Dementia, Depression, Hypertension Additional Past Medical Histor: PE, constipation, allergic rhinitis Past Medical History Limited secondary to dementia (EDWIGE GATICA DO) Past Surgical History Limited secondary to dementia (EDWIGE GATICA DO) Social History Limited secondary to dementia (EDWIGE GATICA DO) General Adult EDM: Chief Complaint: Abdominal distention HPI: HPI: 74-year-old male presents via EMS from his care facility with abdominal pain and abdominal distention. He is only alert to self. History comes from the care facility and EMS reports. The patient was complaining about his abdomen hurting around midnight. The staff checked out it without his abdomen to be distended. The patient has chronic constipation at baseline. At 1 AM they gave the patient a suppository. He then had vomiting that they thought looked like coffee- grounds. He also had some loose stools. He continued to have a very hard abdomen so they sent him to the emergency room. No reported fever or chills. The patient is DNR. (JAYDEN SCHMITT DO) HPI: HPI limited secondary to dementia (EDWIGE GATICA DO) Review of Systems: Review of Systems: Unable to evaluate due to patient dementia (JAYDEN SCHMITT DO) Heart Score: Risk Factors: Risk Factors: DM, Current or recent (<one month) smoker, HTN, HLP, family history of CAD, obesity. Risk Scores: Score 0 - 3: 2.5% MACE over next 6 weeks - Discharge Home Score 4 - 6: 20.3% MACE over next 6 weeks - Admit for Clinical Observation Score 7 - 10: 72.7% MACE over next 6 weeks - Early Invasive Strategies (JAYDEN SCHMITT DO) Current Medications: Current Meds: Current Medications Medications (Trade) Dose Ordered Sig/Antwon Start Time Stop Time Status Last Admin Dose Admin Iohexol (Omnipaque 300 Mg/ml) 75 ml 1X ONCE 01/12/20 05:15 01/12/20 05:16 UNV (JAYDEN SCHMITT DO) Allergies: Allergies: Allergies Coded Allergies Type Severity Reaction Last Updated Verified No Known Drug Allergies 10/22/17 No (JAYDEN SCHMITT DO) Physical Exam: PE: Constitutional: Well developed, well nourished, no acute distress, non-toxic appearance. [] HENT: Normocephalic, atraumatic, bilateral external ears normal, oropharynx moist, no oral exudates, nose normal. [] Eyes: PERRLA, EOMI, conjunctiva normal, no discharge. [] Neck: Normal range of motion, no tenderness, supple, no stridor. [] Cardiovascular:Heart rate regular rhythm, no murmur [] Lungs & Thorax: Bilateral breath sounds clear to auscultation [] Abdomen: firm, distended. [] Skin: Warm, dry, no erythema, no rash. [] Back: No tenderness, no CVA tenderness. [] Extremities: No tenderness, no cyanosis, no clubbing, ROM intact, no edema. [] Neurologic: Alert and oriented X 3, normal motor function, normal sensory function, no focal deficits noted. [] Psychologic: Affect normal, judgement normal, mood normal. [] (JAYDEN SCHMITT DO) PE: Constitutional: Well developed, somnolent HENT: Normocephalic, atraumatic Eyes: Conjunctiva normal, no discharge Neck: Normal range of motion, no tenderness, supple Lungs & Thorax: No respiratory distress, equal chest rise and fall Abdomen: Distended, diffuse tenderness on palpation, tympanic Rectal: Liquid light brown stool noted in brief and upon exam, no hard stool or fecal impaction noted in rectal vault Skin: Warm, dry, no erythema, no rash Back: No tenderness, no CVA tenderness Extremities: Contractions to extremities, no edema Neurologic: Alert x name only, Psychologic: Unable to assess, judgment abnormal (EDWIGE GATICA DO) EKG: EKG: [] (JAYDEN SCHMITT DO) Radiology/Procedures: Radiology/Procedures: [] (JAYDEN SCHMITT DO) Radiology/Procedures: PROCEDURE: CT ABD PELV W/ IV CONTRST ONLY EXAM: CT ABDOMEN/PELVIS WITH CONTRAST. HISTORY: Abdominal pain and vomiting. TECHNIQUE: Computed tomography of the abdomen and pelvis was performed after the intravenous administration of iodinated contrast. One or more of the following individualized dose reduction techniques were utilized for this examination: 1. Automated exposure control. 2. Adjustment of the mA and/or kV according to patient size. 3. Use of iterative reconstruction technique. COMPARISON: None. FINDINGS: Lung windows through the visualized portions of the bases reveal an uncalcified nodule in the left costophrenic angle measuring 14 x 7 mm. Mild centrilobular emphysema is suspected. Wall thickening of the distal esophagus is consistent with esophagitis. There are atherosclerotic calcifications of the coronary arteries. Bone windows reveal no suspicious lesions. There are changes of internal fixation of a right femoral fracture. Lower lumbar central canal stenosis is moderate to severe. The liver, gallbladder, spleen, pancreas and adrenal glands are unremarkable. A benign cyst in the left kidney measures 3.9 cm. The common duct is mildly dilated proximally and 9 mm. It tapers normally distally. There are no pathologically enlarged lymph nodes. There is diffuse moderate distention of the small bowel, colon and stomach. There is a large amount of stool within the sigmoid colon and fluid throughout the right colon. The rectum is distended to 7 cm. No small bowel or colonic transition point is identified. The appendix is not inflamed. There is nonfocal bladder wall thickening. The prostate is moderately enlarged. IMPRESSION: 1. Diffuse small bowel and colonic dilatation are most consistent with ileus. A component of constipation and fecal impaction is suspected. 2. Wall thickening of the distal esophagus is consistent with esophagitis. 3. A 14 mm left lower lobe nodule is indeterminate. Follow-up is recommended in 3 months if long-term stability is not already known. 4. Mild extrahepatic biliary dilatation without a clear cause for distal obstruction. Correlate for cholestasis to assess significance. 5. Nonfocal bladder wall thickening suggests chronic outlet obstruction or inflammation. Moderate benign prostatic hypertrophy. Electronically signed by: Digna Hunter MD (01/12/2020 6:27 AM) [facility] (EDWIGE GATICA DO) Course & Med Decision Making: Course & Med Decision Making Pertinent Labs and Imaging studies reviewed. (See chart for details) The patient's work-up is pending. I am signing the patient out to Dr. Gatica at 0600. [] (JAYDEN SCHMITT DO) Course & Med Decision Making 0600- Sign out received from Dr. Cline for patient from [facility] with distended abdomen concerning for obstruction. Labs pending. CT abd/pelvis with signs of ileus and possible impaction. Pulmonary nodule of unknown chronicity noted. Rectal exam performed without impaction noted in rectal vault. NGT placed for decompression. CXR/KUB obtained to confirm positioning. Patient requiring transfer for admission. Discussed case with Dr. Yi (PCP/hospitalist) who is in agreement with admission to [facility] for further evaluation and treatment. (EDWIGE GATICA DO) Dragon Disclaimer: Dragon Disclaimer: This electronic medical record was generated, in whole or in part, using a voice recognition dictation system. (JAYDEN SCHMITT DO) Departure Departure: Impression: Primary Impression: Ileus Additional Impressions: Constipation Qualified Codes: K59.00 - Constipation, unspecified Vomiting Qualified Codes: R11.10 - Vomiting, unspecified Pulmonary nodule Disposition: ADMITTED INPATIENT Admitting Physician: Macey Yi (EDWIGE GATICA DO) Condition: STABLE Referrals: PCP,NO (PCP) Justification of Admission: Justification of Admission: Justification of Admission Dx: Yes Comments: likely bowel obstruction (JAYDEN SCHMITT DO) Justification of Admission Dx: Yes Comments: Ileus (EDWIGE GATICA DO) JAYDEN SCHMITT DO Jan 12, 2020 05:14 EDWIGE GATICA DO Jan 12, 2020 06:38
[2020-01-12] MEDS ORDERED: CONTRAST GIVEN MC PRN (05:15)
[2020-01-12] MEDS ORDERED: IOHEXOL 300 MG/ML 75 ML VIAL. IV ONE (05:30)
[2020-01-12 05:45] LABS: BASO % 0 % (0-3); EOS % 0 % (0-3); HEMATOCRIT 43.9 % (39.0-53.0); HEMOGLOBIN 14.5 g/dL (13.0-17.5); LYMPH # 0.6 x10^3/uL (1.0-4.8); LYMPH % 7 % (24-48); MEAN CORPUSCULAR HEMOGLOBIN 29 pg (25-35); MEAN CORPUSCULAR HGB CONC 33 g/dL (31-37); MEAN CORPUSCULAR VOLUME 87 fL (79-100); MONO # 0.4 x10^3/uL (0.0-1.1); MONO % 5 % (0-9); NEUT # 7.7 x10^3uL (1.8-7.7); NEUT % 87 % (31-73); PLATELET COUNT 253 x10^3/uL (140-400); RED BLOOD COUNT 5.08 x10^6/uL (4.30-5.70); RED CELL DISTRIBUTION WIDTH 16.3 % (11.5-14.5); WHITE BLOOD COUNT 8.9 x10^3/uL (4.0-11.0)
[2020-01-12 05:52] LABS: CALCIUM 9.8 mg/dL (8.5-10.1); CREATININE 1.1 mg/dL (0.7-1.3); GFR 78.7; POTASSIUM 3.6 mmol/L (3.5-5.1)
[2020-01-12 05:58] LABS: ALBUMIN 3.8 g/dL (3.4-5.0); ALBUMIN/GLOBULIN RATIO 0.9 (1.0-1.7); TOTAL BILIRUBIN 0.6 mg/dL (0.2-1.0); TOTAL PROTEIN 8.1 g/dL (6.4-8.2)
[2020-01-12 06:06] LABS: CLARITY,URINE CLEAR; COLOR,URINE YELLOW
[2020-01-12 06:07] LABS: BACTERIA,URINE 0 /HPF (0-FEW); BILIRUBIN,URINE NEG (NEG); GLUCOSE,URINE NEG (NEG); NITRITE,URINE NEG (NEG); RBC,URINE 20-40 /HPF (0-2); UROBILINOGEN,URINE 0.2 mg/dL (0.2 mg/dL); WBC,URINE RARE /HPF (0-4)
--- NOTE | 2020-01-12 06:30 | RAD ---
EXAM: CT ABDOMEN/PELVIS WITH CONTRAST. HISTORY: Abdominal pain and vomiting. TECHNIQUE: Computed tomography of the abdomen and pelvis was performed after the intravenous administration of iodinated contrast. One or more of the following individualized dose reduction techniques were utilized for this examination: 1. Automated exposure control. 2. Adjustment of the mA and/or kV according to patient size. 3. Use of iterative reconstruction technique. COMPARISON: None. FINDINGS: Lung windows through the visualized portions of the bases reveal an uncalcified nodule in the left costophrenic angle measuring 14 x 7 mm. Mild centrilobular emphysema is suspected. Wall thickening of the distal esophagus is consistent with esophagitis. There are atherosclerotic calcifications of the coronary arteries. Bone windows reveal no suspicious lesions. There are changes of internal fixation of a right femoral fracture. Lower lumbar central canal stenosis is moderate to severe. The liver, gallbladder, spleen, pancreas and adrenal glands are unremarkable. A benign cyst in the left kidney measures 3.9 cm. The common duct is mildly dilated proximally and 9 mm. It tapers normally distally. There are no pathologically enlarged lymph nodes. There is diffuse moderate distention of the small bowel, colon and stomach. There is a large amount of stool within the sigmoid colon and fluid throughout the right colon. The rectum is distended to 7 cm. No small bowel or colonic transition point is identified. The appendix is not inflamed. There is nonfocal bladder wall thickening. The prostate is moderately enlarged. IMPRESSION: 1. Diffuse small bowel and colonic dilatation are most consistent with ileus. A component of constipation and fecal impaction is suspected. 2. Wall thickening of the distal esophagus is consistent with esophagitis. 3. A 14 mm left lower lobe nodule is indeterminate. Follow-up is recommended in 3 months if long-term stability is not already known. 4. Mild extrahepatic biliary dilatation without a clear cause for distal obstruction. Correlate for cholestasis to assess significance. 5. Nonfocal bladder wall thickening suggests chronic outlet obstruction or inflammation. Moderate benign prostatic hypertrophy. Electronically signed by: Digna Hunter MD (01/12/2020 6:27 AM) [facility]
[2020-01-12] MEDS ORDERED: ONDANSETRON PF 4 MG/2 ML VIAL. IVP PRN (07:15)
[2020-01-12] MEDS ORDERED: IV NORMAL SALINE 1,000ML 1,000 ML IV SCH ×2 (07:15→10:30)
[2020-01-12 07:44] LABS: FECAL OB PT NEGATIVE (NEG)
--- NOTE | 2020-01-12 08:11 | RAD ---
EXAM: CHEST AP ONLY, KUB INDICATION: Reason: s/p NGT placement, eval for position / Spl. Instructions: / History: . TECHNIQUE: Single view COMPARISON: None FINDINGS: An enteric tube is present passing just below the diaphragms. The tip terminates in the left upper quadrant just past the gastroesophageal junction. The heart size is mildly enlarged. Great vessels show aortic tortuosity. No hilar or mediastinal mass is apparent. Lungs are hypoventilatory but show no focal infiltrates. There is no pleural effusion or pneumothorax. There are no significant osseous abnormalities. Included upper abdomen shows gas-filled bowel loops with no free air under the diaphragms IMPRESSION: Enteric tube terminates just below the diaphragms in the gastric fundus. PROCEDURE: CHEST AP ONLY, KUB STUDY DATE: 01/12/2020 CLINICAL INDICATION / HISTORY: Reason: s/p NGT placement, eval for position / Spl. Instructions: / History: . TECHNIQUE: Single AP image of the abdomen was obtained. COMPARISON: Abdomen pelvis CT 01/12/2020 at 5:51 AM FINDINGS: The lung bases are not included. Multiple gas-filled bowel loops are present, similar to prior with an enteric tube tip terminating in the left upper quadrant in the vicinity of the gastric fundus. No evidence of free air. No organomegaly or pathologic calcifications are identified. Residual contrast material in the urinary tract is present. Bones show fixation screws in the right femoral neck. IMPRESSION: Enteric tube in the proximal stomach with multiple gas-filled bowel loops compatible with a small bowel obstruction or ileus again evident. Electronically signed by: Merlene Black MD (01/12/2020 8:07 AM) [id number]
[2020-01-12] MEDS ORDERED: BISA10SU4 RC (10:07)
[2020-01-12] MEDS ORDERED: HYDR-3165 PO (10:07)
[2020-01-12] MEDS ORDERED: MULT-735 PO (10:07)
[2020-01-12] MEDS ORDERED: CETI10TA16 PO (10:07)
[2020-01-12] MEDS ORDERED: RISP0.5T24 PO ×2 (10:07)
[2020-01-12] MEDS ORDERED: POLY17PO5 PO (10:07)
[2020-01-12] MEDS ORDERED: SERT25TA PO (10:09)
[2020-01-12 10:47] VITALS: BP 136/88
[2020-01-12] MEDS ORDERED: COLACE LIQUID PO (11:31)
[2020-01-12] MEDS ORDERED: MAGN296S68 PO (11:31)
[2020-01-12 15:09] VITALS: BP 124/78
[2020-01-12] MEDS: POTASSIUM CL 20MEQ D5-0.45NACL 1,000 ML IV SCH (17:41)
[2020-01-12] MEDS: PANTOPRAZOLE IV 40 MG VIAL. IVP SCH (17:43)
[2020-01-12] MEDS ORDERED: METHYLNALTREXONE 12 MG/0.6 ML VIAL. SQ ONE (18:00)
--- NOTE | 2020-01-12 18:42 | HP ---
ADMIT DATE: 01/12/2020 HISTORY OF PRESENT ILLNESS: The patient is a 74-year-old -[place] male patient, a resident at [facility], who was brought to the Emergency Room, apparently has had abdominal pain, abdominal distention. He is normally only alert to himself. The nursing staff stated that the patient has chronic constipation at baseline, at around 1:00 a.m. they gave him suppository and then he had vomited what looked coffee-ground emesis. He also had some loose stools. He continued to have very hard abdomen, so they sent him to the Emergency Room. There were no reported chills, rigors or fever. The patient is a DNR. He is extremely demented and does not give any useful information. In the Emergency Room, he has had lab work done, which showed his CBC was well within normal range. His chemistry also was unrevealing. Urinalysis showed that he has microscopic hematuria and his stool for occult blood was negative. Has had a CT scan of the abdomen and pelvis with IV contrast only and this showed that the lungs without windows through the visualized portion, and uncalcified nodules in the left costophrenic angle, measuring 14 x 7 mm, mild centrilobular emphysema, suspected wall thickening of the distal esophagus consistent with esophagitis and there are atherosclerotic calcification of the coronary arteries. Bone windows reveal no suspicious lesion. There are changes of internal fixation of the right femoral fracture. The lower lumbar central canal stenosis is moderate to severe. The liver, gallbladder, spleen, pancreas and adrenal glands are unremarkable. A benign cyst in the left kidney measures 3.9 cm. The common duct is mildly dilated approximately at 9 mm, it tapers normally. Distally, there are no pathologically enlarged lymph nodes. There is diffuse moderate distention of the small bowel, colon and stomach. There is a large amount of stool within the sigmoid colon and fluid throughout the right colon. The rectum is distended to 7 cm. No small bowel or colonic transition point is identified. Appendix not inflamed. There are no focal bladder wall thickening. The prostate is moderately enlarged. With the impression the patient has diffuse small bowel and colonic dilatation, are most consistent with ileus, a component of constipation and fecal impaction is suspected. #2, wall thickening of the distal esophagus consistent with esophagitis. #3, a 14 mm left lower lobe nodule is indeterminate. Followup is recommended. Mild extrahepatic biliary dilatation without clear cause for distal obstruction. Nonfocal bladder wall thickening suggests chronic outlet obstruction or inflammation, moderate benign prostatic hypertrophy. Currently, the patient has an NG tube placed and about 400 mL of fluid was recovered from the stomach, was continued in intermittent suction. The patient will be started on IV fluid and IV Protonix. We will monitor his response closely. 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 He has also chronic constipation and traumatic fracture of the ____ femur and essential hypertension. He has actually a right femoral neck fracture. PAST SURGICAL HISTORY: Significant for open reduction and internal fixation of the ____ femur fracture. ALLERGIES: He has no known drug allergies. MEDICATIONS: He is currently on following medications: He is on acetaminophen 650 mg every 4 hours as needed, cetirizine 10 mg once a day. Colace 50 mg in 5 mL, he takes 10 mL twice a day. Dulcolax suppositories 10 mg rectally daily p.r.n. for constipation, magnesium citrate solution 300 mL by mouth every 72 hours. He is on milk of magnesia 30 mL p.o. daily p.r.n. for constipation, MiraLax 17 g daily, multivitamin with mineral 1 tablet once a day. He is on [place] 1 tablet by mouth every 8 hours. He is on Risperdal 0.5 mg at bedtime and Risperdal 0.5 mg he takes 1 tablet by mouth during daytime. He is on Zoloft or sertraline 25 mg 1 time a day. REVIEW OF SYSTEMS: Unobtainable. PHYSICAL EXAMINATION: GENERAL: On arrival to the Emergency Room, he looked well and was clearly in no apparent respiratory distress. No pallor, jaundice, cyanosis or thyromegaly. No jugular venous distention. No lower limb edema. VITAL SIGNS: Her heart rate was 97, blood pressure was 125/86, temperature was 98.4, respiratory rate was 16, and oxygen saturation was 96%. HEAD, EYES, EARS, NOSE AND THROAT: Showed normocephalic, atraumatic. NECK: Supple. HEART: Showed normal first and second heart sounds. No gallop, rub or murmur. CHEST: Shows central trachea, equal bilateral expansion air entry, vesicular sounds. No crepitation or rhonchi. ABDOMEN: The abdomen is definitely distended, but there is no guarding or rigidity. No organomegaly. All hernial orifice intact. Bowel sounds normal. NEUROLOGIC: He is demented, but without any lateralizing sign. He is only alert to himself. LABORATORY DATA: This morning showed a white cell count of 8900, hemoglobin 14.5, hematocrit 44, MCV 87 and platelet count 253,000. His chemistry showed a serum sodium 143, potassium 3.6, chloride 102, bicarbonate 32, anion gap of 9, BUN 14, creatinine 1.1, estimated GFR was 78 and glucose 127. Lactic acid 2, calcium was 9.8. Total bilirubin, AST, ALT, alkaline phosphatase were normal. Total protein was 8.1, albumin was 3.8. His urinalysis showed the urine was yellow, clear with a pH of 5, specific gravity of 1.030. The urine was negative for protein, glucose, trace of ketones, moderate amount of blood, negative for nitrite, leukocyte esterase. There are 20-40 rbc's, rare wbc's, and no bacteria. His chest x-ray showed an enteric tube is present passing just below the diaphragm, the tip terminates in the left upper quadrant just past the gastroesophageal reflux disease. The heart size is mildly enlarged. Grade result shows aortic tortuosity. No hilar or mediastinal masses apparent. Lungs are hypoventilatory, but show no focal infiltrate. There is no pleural effusion or pneumothorax. There are no significant osseous abnormalities included. Upper abdomen showed gas filled bowel loops with no free air under diaphragm. The patient was basically admitted with severe constipation/paralytic ileus, has an NG tube to intermittent suction. Keep him n.p.o. Start him on IV fluid and we will continue with IV Protonix for his esophagitis. We will try Dulcolax suppositories and perhaps also milk and molasses enema and if no improvement, we will try Relistor as he is known to take pain medication on a regular basis. ISAIAH NICOLE MD DR: ENRICO/lucia JOB#: [id number] / [id number]
[2020-01-12 19:55] VITALS: BP_SYST 114; BP_SYST 119; BP_DIAS 59; BP_DIAS 73
[2020-01-13 00:13] VITALS: BP 125/79
[2020-01-13] MEDS: POTASSIUM CL 20MEQ D5-0.45NACL 1,000 ML IV SCH ×3 (02:53→23:06)
[2020-01-13 05:27] VITALS: BP 157/94
[2020-01-13 06:42] LABS: HEMATOCRIT 38.5 % (39.0-53.0); HEMOGLOBIN 12.8 g/dL (13.0-17.5); RED BLOOD COUNT 4.49 x10^6/uL (4.30-5.70); RED CELL DISTRIBUTION WIDTH 16.6 % (11.5-14.5); WHITE BLOOD COUNT 8.6 x10^3/uL (4.0-11.0)
[2020-01-13 07:00] LABS: ALBUMIN/GLOBULIN RATIO 0.8 (1.0-1.7); CALCIUM 8.5 mg/dL (8.5-10.1); GFR 87.9; POTASSIUM 3.6 mmol/L (3.5-5.1); TOTAL BILIRUBIN 0.7 mg/dL (0.2-1.0); TOTAL PROTEIN 6.6 g/dL (6.4-8.2)
[2020-01-13] MEDS: PANTOPRAZOLE IV 40 MG VIAL. IVP SCH (07:18)
[2020-01-13 09:48] VITALS: BP 134/61
[2020-01-13] MEDS ORDERED: METHYLNALTREXONE 12 MG/0.6 ML VIAL. SQ ONE (14:00)
--- NOTE | 2020-01-13 16:19 | PN ---
DATE: 01/13/2020 SUBJECTIVE: The patient is resting, slightly propped up in bed, in no apparent respiratory distress. He seemed to be a little bit more responsive and mouthed some words today. He does not seem to be in any respiratory distress. The NG tube output is very little. However, his abdomen is markedly distended, has had 2 bowel movements yesterday and 1 last night. PHYSICAL EXAMINATION: GENERAL: When I examined him, he looked pale, no jaundice, cyanosis or thyromegaly. No jugular venous distention. No lower limb edema. VITAL SIGNS: His heart rate was 72, blood pressure was 134/61, temperature was 98.7, respiratory rate was 20, and oxygen saturation was 95%. HEAD, EYES, EARS, NOSE AND THROAT: Showed normocephalic, atraumatic. He has a Dobhoff catheter in the left nostril. NECK: Supple. HEART: Showed normal first and second heart sounds. No gallop, rub or murmur. CHEST: Clear to auscultation. No crepitation or rhonchi. ABDOMEN: Markedly distended, soft, nontender. Bowel sounds audible. NEUROLOGIC: He is more awake today, alert. According to nursing staff he even mouthed some words. All his cranial nerves are intact. He moves extremities without difficulty, though is mostly bedbound, chair bound. His intake over the last 24 hours was 1735, output 550. LABORATORY DATA: As of this morning, his serum sodium was 145, potassium 3.6, chloride 109, bicarbonate 29, anion gap of 7, BUN 13, creatinine 1, estimated GFR was 88 mL per minute, his glucose was 122, calcium was 8.5. Total bilirubin, AST, ALT, alkaline phosphatase were normal. Total protein 6.6, albumin 3. His TSH was normal at 0.655. His white cell count was 8600, hemoglobin 13, hematocrit 39, MCV 86 and platelet count 220,000. Urinalysis showed basically mostly microscopic hematuria. ASSESSMENT: Severe constipation/paralytic ileus. PLAN: Plan is to clamp his NG tube as the output was very little. I will continue with IV fluid, IV Protonix for esophagitis. I will order another dose of Relistor and also milk of molasses enema and repeat his images and lab workup. ISAIAH NICOLE MD DR: Nash JOB#: [id number] / [id number]
[2020-01-13] MEDS ORDERED: MAGNESIUM CITRATE 296 ML SOLUTION. PO ONE (17:15)
[2020-01-13 17:30] VITALS: BP 161/91
[2020-01-13 19:31] VITALS: BP 164/86
[2020-01-13 22:24] VITALS: BP 139/84
[2020-01-14 05:37] VITALS: BP 121/84
[2020-01-14 08:18] LABS: ALBUMIN 3.1 g/dL (3.4-5.0); ALBUMIN/GLOBULIN RATIO 0.8 (1.0-1.7); CALCIUM 8.5 mg/dL (8.5-10.1); CREATININE 1.1 mg/dL (0.7-1.3); GFR 78.7; POTASSIUM 3.5 mmol/L (3.5-5.1); TOTAL BILIRUBIN 0.7 mg/dL (0.2-1.0)
[2020-01-14] MEDS: PANTOPRAZOLE IV 40 MG VIAL. IVP SCH (09:08)
[2020-01-14] MEDS: POTASSIUM CL 20MEQ D5-0.45NACL 1,000 ML IV SCH (10:00)
[2020-01-14] MEDS ORDERED: CONTRAST GIVEN MC PRN (10:30)
[2020-01-14] MEDS ORDERED: IOHEXOL 300 MG/ML 75 ML VIAL. IV ONE (10:30)
[2020-01-14] MEDS ORDERED: IOHEXOL 240 MG/ML 50ML VIAL. PO ONE (10:30)
[2020-01-14 10:54] VITALS: BP 151/71
--- NOTE | 2020-01-14 13:31 | RAD ---
CT abdomen and pelvis with contrast 22,020. Reason for exam: Bowel obstruction. CT images were made through the abdomen and pelvis using an infusion of 75 mL Omnipaque 300. Oral contrast was also given. Comparison is made with the CT of 01/12/2020. Exposure: One or more of the following individualized dose reduction techniques were utilized for this examination: 1. Automated exposure control 2. Adjustment of the mA and/or kV according to patient size 3. Use of iterative reconstruction technique. FINDINGS: There are now small bilateral pleural effusions with some early adjacent atelectasis. A peripheral nodule is again seen in the left lower lobe. An NG tube is now seen and ends at the distal esophagus. No new abnormality is evident within the liver or spleen. There is some respiratory motion artifact through the upper abdomen. Both kidneys enhance with contrast. No solid mass or obstruction is seen. A cyst is again shown arising laterally from the left kidney. The adrenal glands are not enlarged. The pancreas is small, but otherwise shows no abnormality. There is now some edema in the fat immediately lateral to the tail of the pancreas. No retroperitoneal or mesenteric adenopathy is seen. There is no apparent abdominal soft tissue mass. There continues to be diffuse bowel distention involving large and small bowel. Gas and fluid are present throughout. No transition point is identified. There is less stool in the colon since the prior exam. No new abdominal mass or inflammatory process is seen. Images through the pelvis show no abnormality of the distal ureters. The bladder contains a catheter. There is now more heterogeneous density within the bladder lumen. This may indicate hemorrhage. No separate pelvic mass or inflammatory process is seen. IMPRESSION: There is continued diffuse bowel distention without identified obstruction point. This presumably indicates ileus. There is now suggestion of some edema laterally in the mid left abdomen. This is near the tail of the pancreas, and mild pancreatitis would be a consideration. An NG tube that has been placed has its tip at the distal esophagus. Electronically signed by: Barrett Rosario Jr., MD (01/14/2020 1:28 PM) [id number]
[2020-01-14 15:09] VITALS: BP 139/91
--- NOTE | 2020-01-14 18:08 | DS ---
DATE OF DISCHARGE: 01/14/2020 HOSPITAL COURSE: The patient is a 74-year-old -[place] male patient who was admitted with recurrent bouts of nausea, vomiting and progressive abdominal distention and constipation. His initial CT scan abdomen and pelvis showed that the patient has diffuse small bowel and colonic dilatation, most consistent with ileus, a component of constipation and fecal impaction is suspected, wall thickening of the distal esophagus consistent with esophagitis. He has also mild extrahepatic biliary dilatation without a clear cause of distal obstruction. We did put an NG tube with intermittent suction and we treated him with Relistor, multiple enemas including milk of molasses as well as I have given also mag citrate through the NG tube without really much improvement. His abdomen continued to be distended and markedly tender. I did repeat a CT scan this morning and showed that the patient has continued diffuse bowel distention without identifiable obstruction ____ this presumably indicated ileus. There is now suggestion of some edema laterally in the mid left abdomen. This is near the tail of the pancreas and mild pancreatitis would be a consideration. Given that the patient's abdomen continued to distend and bowels are so dilated with air fluid level, I will transfer him to [facility] to consult the asp net c developer as well as the surgical team. PHYSICAL EXAMINATION: GENERAL: When I saw him this afternoon, he was resting, slightly propped up in bed, in no apparent respiratory distress, pale, but no jaundice, cyanosis or thyromegaly. No jugular venous distention. No limb edema. VITAL SIGNS: His heart rate was 100, blood pressure was 139/91, temperature was 98.6, respiratory rate was 20, and oxygen saturation was 96% on room air. HEAD, EYES, EARS, NOSE AND THROAT: Showed normocephalic, atraumatic. NECK: Supple. HEART: Showed normal first and second heart sounds. No gallop, rub or murmur. CHEST: Clear to auscultation. No crepitation or rhonchi. ABDOMEN: Distended, soft, diffusely tender. Apparently, the NG tube is seen at the distal esophagus. We will change the NG tube and continue to intermittent suction. His urine output also is low, so we will change the catheter and we will transfer him to [facility]. LABORATORY DATA: His lab work this morning showed a white cell count of 8600, hemoglobin 12.8, hematocrit 38, MCV was 86 and platelet count 220,000. Serum sodium was 144, potassium 3.5, chloride 108, bicarbonate 28, anion gap of 8, BUN 12, creatinine was 1.1, estimated GFR was 78 mL per minute. His glucose 168, calcium was 8.5. Total bilirubin, AST, ALT, alkaline phosphatase were normal. Lactate dehydrogenase was 157. Total protein 7, albumin 3.1. His TSH was normal at 0.655. His CT scan of the abdomen showed now small bilateral pleural effusion with some early adjacent atelectasis and peripheral nodule is again seen in the left lower lobe and NG tube is now seen ____ at the distal esophagus. No new abnormalities evident within the liver and spleen. There is some respiratory motion artifact through the upper abdomen. Both kidneys enhance with contrast. No solid masses or obstruction seen and the adrenal glands are not enlarged. Pancreas is small but otherwise shows no abnormality. There is now small edema in the fat immediately lateral to the tail of the pancreas, no retroperitoneal or mesenteric adenopathy is seen. There are no apparent abdominal soft tissue masses. There is continued to be diffuse bowel distention involving large and small bowel. Gas and air fluid are present throughout with transition point identified. There is less stool in the colon since the prior exam. No new abdominal mass or inflammation process seen. Images through the pelvis showed no abnormalities of the distal ureters. The bladder contains a catheter. There is now more heterogenous density within the bladder lumen. This may indicate hemorrhage, no separate pelvic mass or inflammatory process is seen. The plan is to change the NG tube and make sure it is in the right position. We will change the Mckenzie catheter and we will transfer him to [facility] to consult the asp net c developer as well as the surgical team. ISAIAH NICOLE MD DR: NERICO/lucia JOB#: [id number] / [id number]
== END 2020-01-14 18:30 | disposition short-term general hospital (02) | DRG 389 ==
LOC: ER 04:56 → 1 SOUTH 09:01
PROVIDERS: ADMIT Internal Medicine; ATTEND Internal Medicine
PROC: 0D9670Z Drainage of Stomach with Drainage Device, Via Natural or Artificial Opening (ICD-10-PCS; principal; 2020-01-12)
DX: K56.0 Paralytic ileus (principal); F02.81 Dementia in other diseases classified elsewhere, unspecified severity, with behavioral disturbance; K56.41 Fecal impaction; G30.9 Alzheimer's disease, unspecified; I10 Essential (primary) hypertension; J44.9 Chronic obstructive pulmonary disease, unspecified; M48.061 Spinal stenosis, lumbar region without neurogenic claudication; N40.0 Benign prostatic hyperplasia without lower urinary tract symptoms; Z66 Do not resuscitate; F32.9 Major depressive disorder, single episode, unspecified; R91.1 Solitary pulmonary nodule; K20.9 Esophagitis, unspecified
CPT/HCPCS: 36415; 71045; 74018; 74177; 80053; 81001; 82274; 83605; 83615; 84443; 85025; 85027; 96360; 96361; C9113; J2212; Q9966; Q9967; 99285-25; J7030